=== PATIENT | female | born 1985 | race Caucasian/White ===

== ENCOUNTER → 2020-03-13 13:24 | Outpatient (BNVA) | payer BC, SELFPAY | PROVIDERS: Family Provider Family Medicine; Visit Provider Nurse Practitioner Women's Health | DX: N76.0 Acute vaginitis (principal); Z30.431 Encounter for routine checking of intrauterine contraceptive device | CPT/HCPCS: 88175 ==

== ENCOUNTER 2020-07-26 20:29 | Emergency (ER) | payer BC, SELFPAY ==
[2020-07-26 20:39] VITALS: BP 130/88; PULSE 102; RESP 16; TEMP 36.5; O2SAT 100; BMI 25.7
--- NOTE | 2020-07-26 20:57 | XRR_ITS ---
PROCEDURE INFORMATION: Exam: XR Chest, 1 View Exam date and time: 07/26/2020 9:21 PM Age: 35 years old Clinical indication: Chest pain; Additional info: Palpitations TECHNIQUE: Imaging protocol: XR of the chest Views: 1 view. COMPARISON: No relevant prior studies available. FINDINGS: Lungs: Unremarkable. No consolidation. Pleural space: Unremarkable. No pleural effusion. No pneumothorax. Heart/Mediastinum: Unremarkable. No cardiomegaly. Bones/joints: Unremarkable. XR/XR chest 1V portable [id number] IMPRESSION: No acute findings.
--- NOTE | 2020-07-26 20:58 | W.ED.ARRPALP ---
HPI - Arrhythmia/Palpitations General: Chief Complaint: Arrhythmia/Palpitations Stated Complaint: chest pain/ fluttering / numbness in arm Time Seen by Provider: 07/26/20 20:48 Source: patient Mode of arrival: ambulatory Limitations: no limitations History of Present Illness: HPI narrative: Martha is a nice 35-year-old female who comes in complaining of palpitations. He said they started about 2 hours ago when she was at home just standing. She has any chest pain but she says at times she feels like tingling in her fingers and she gets short of breath. She denies any syncope or near syncope type symptoms. She denies anything similar in the past. The patient took a 0.25 Xanax that she has for anxiety and it has helped some but not completely resolved her symptoms. Denies any fever, chills, nausea or vomiting. She denies any other symptoms. Associated symptoms: Deny diaphoresis, nausea, pre-syncope, syncope or vomiting Review of Systems Const: Denies: fever(s), chills, body aches, fatigue, malaise or diaphoresis Eyes: Denies: change in vision, blurry vision, photophobia, eye discomfort, eye discharge, eye redness or yellow eyes ENMT: Denies: throat pain, odynophagia, hoarseness, swelling of lips/tongue, ear or mastoid pain, ear discharge, change in hearing or nasal discharge Card: Reports: palpitations; Denies: chest pain, irregular heart rhythm, edema, lightheadedness, syncope, pre-syncope, dyspnea on exertion or orthopnea Resp: Denies: dyspnea, productive cough, non-productive cough, wheezing, hemoptysis or chest congestion GI: Denies: abdominal pain, nausea, vomiting, hematemesis, coffee ground emesis, heartburn, diarrhea, constipation, GI cramping, hematochezia or melena : Denies: flank pain, dysuria, urinary frequency, urinary urgency or hematuria Musc: Denies: neck pain, back pain, extremity pain, extremity swelling, joint pain, joint swelling, joint redness, joint warmth or joint stiffness Skin/Breast: Denies: rash, pruritus, erythema, skin pain or skin tenderness Neuro: Denies: headache(s), numbness in extremities, weakness in extremities, sensory changes, lack of coordination, difficulty walking, dizziness, vertigo, confusion, Slurred speech present or seizure-like activity Jamie/Lymph: Denies: easy bruising, easy bleeding, petechiae, purpura or enlarged lymph nodes All/Imm: Denies: urticaria, throat swelling, tongue swelling, facial swelling or acute wheezing PFSH ED PFSH: Medical History Contraceptive management GERD (gastroesophageal reflux disease) Migraine Urge incontinence (~2017) mild symptoms Surgical History H/O breast biopsy 1--12/2006 -benign 2--2009- benign H/O section 1--10/04/2009 2--05/25/2017 H/O laminectomy (~06/2019) C4 C5 with fusion History of cholecystectomy (~03/01/19) History of tonsillectomy (~06/2005) Family History Father Diabetes Family/Other Diabetes Paternal uncle Grandmother Diabetes Paternal grandmother Maternal grandmother Family history of thyroid problem Maternal grandmother Grandfather Diabetes Paternal grandfather Maternal grandfather Hyperlipidemia Maternal grandmother Stroke Maternal grandfather Other Heart disease Hypertension Denies family history of Ovarian cancer Breast cancer Uterine cancer Social History Smoking and tobacco status: never smoked Alcohol intake: current Physical Exam Const: COMMON NORMALS: no acute distress, patient oriented x3, no limitations and alert GENERAL APPEARANCE: cooperative HENMT: COMMON NORMALS: normocephalic, atraumatic, external ears normal, EAC's normal and Normal external nose present HEAD & SCALP: normal to inspection, normocephalic and atraumatic FACE & SINUS: normal facial exam and face symmetric NOSE: Normal external nose present and Normal nares present EXTERNAL EAR: Yes external ears normal EXTERNAL AUDITORY CANAL: EAC's normal MOUTH: Normal oral and palatal mucosa present, lip normal and tongue normal Eye: COMMON NORMALS: Equal, round and reactive pupils present and conjunctivae normal GENERAL EYE: appearance normal, both eyes and all related structures ALIGNMENT: Yes alignment normal PERIORBITAL: periorbital findings normal EYELID: eyelids normal CONJUNCTIVA: Yes conjunctivae normal SCLERA: sclerae normal PUPIL: Yes Equal, round and reactive pupils present Neck/C-Spine: COMMON NORMALS: full ROM, no lymphadenopathy, supple, no meningeal signs and no JVD GENERAL: Yes normal visual inspection and Yes trachea midline Chest: COMMONS NORMALS: normal inspection of the chest and normal palpation of entire chest wall Resp: COMMON NORMALS: normal respiratory effort, No retractions, No use of accessory muscles and clear to auscultation bilaterally EFFORT & INSPECTION: Yes able to speak in complete sentences and Yes symmetric chest movement AUSCULTATION: clear to auscultation bilaterally, no crackles, no rales, no rhonchi and no wheezes Cardio: COMMON NORMALS: no JVD, regular rate, regular rhythm, S1 normal heart sound present and S2 normal heart sound present RATE: regular rate RHYTHM: regular rhythm HEART SOUNDS: S1 normal heart sound present, S2 normal heart sound present, no click, no gallops, no murmurs and no rubs GI: COMMON NORMALS: Soft to palpation and No hepatosplenomegaly present PALPATION: Yes Soft to palpation, No Tenderness to palpation present (GI), No Guarding due to palpation present (GI), No Rigid due to palpation, Yes No hepatosplenomegaly present, No Hernia present, No Palpable mass present and No Pulsatile mass present : COMMON NORMALS: Yes no CVA tenderness BLADDER/KIDNEY EXAM: Yes no CVA tenderness EXTERNAL FEMALE EXAM: No Hernia present Back/Pelvis: COMMON NORMALS: no CVA tenderness, thoracic and lumbar spine normal to inspection, no thoracic nor lumbar tenderness and thoraco-lumbar ROM normal Extremity: COMMON NORMALS: normal to inspection, full ROM, capillary refill normal, no joint enlargement, no clubbing, cyanosis or edema and no calf tenderness Neuro: COMMON NORMALS: patient oriented x3, CN's II-XII intact bilaterally, moves all extremities, no focal motor deficits and no sensory deficits noted SENSORIUM/ORIENTATION: Yes alert MENINGEAL SIGNS: Yes no meningeal signs SPEECH: speech normal Psych: COMMON NORMALS: mental status grossly normal, Normal thought process present, cooperative, normal affect, speech normal and activity/motor behavior normal SPEECH: Yes normal speech THOUGHT PROCESS: Normal thought process present Skin: COMMON NORMALS: no rashes or lesions noted, turgor normal, no jaundice, no petechiae and no mottling GENERAL SKIN EXAM: no rashes or lesions noted and turgor normal Course Vital Signs: Vital signs: Vital Signs Temperature 97.7 F 07/26/20 20:39 Pulse Rate 102 H 07/26/20 20:39 Respiratory Rate 16 07/26/20 20:39 Blood Pressure 130/88 07/26/20 20:39 Pulse Oximetry 100 07/26/20 20:39 MDM - Arrhythmia/Palpitations MDM Narrative: Medical decision making narrative: Martha is a nice 35-year-old female who comes in after having an episode of palpitations while at home. She describes this as a fluttering in her chest but denies any chest pain and only had brief shortness of breath. She feels fine at this time. She believes the Xanax helped her symptoms primarily. It is possible this was just an anxiety attack. Otherwise her EKG is clear at this time. I see no evidence of Xhyqx-Mqiyvzuyp-Mzxks syndrome, obstructed AV pathway, Brugada syndrome, bifascicular block, long or short QT syndrome, no Fclq-Sqkcjd-Ppegxf syndrome, no epsilon waves, or ST segment elevation or depressions. The patient is safe to be discharged but she does agree to return should her symptoms return or anything change or worsen. Lab Data: Labs: Lab Results 07/26/20 07/26/20 07/26/20 Range/Units 21:35 21:35 21:35 WBC 12.0 H (4.0-10.0) 10^3/ uL RBC 3.93 L (4.1-5.3) 10^6/u L Hgb 13.2 (11.5-15.3) g/dL Hct 39.2 (37.0-47.0) % MCV 99.7 H (81-99) fL MCH 33.6 (28.0-34.0) pg MCHC 33.7 (30.0-36.0) g/dL RDW 11.7 L (12.1-15.1) % Plt Count 263 (130-400) 10^3/c mm MPV 10.1 (7.4-10.4) fL Neut % (Auto) 76.4 % Lymph % (Auto) 18.4 % [place] % (Auto) 4.1 % Eos % (Auto) 0.4 % Baso % (Auto) 0.4 % Neut # (Auto) 9.19 H (1.8-7.7) 10^3/u L Lymph # (Auto) 2.2 (0.8-4.8) 10^3/u L [place] # (Auto) 0.5 (0.2-0.9) 10^3/u L Eos # (Auto) 0.1 (0.0-0.8) 10^3/u L Baso # (Auto) 0.1 (0.0-0.1) 10^3/u L Nucleated RBC % (a uto) 0 % Nucleated RBCs # 0.0 /100WBC D-Dimer 0.34 (0-0.59) ug/mIFE U Sodium 137 (136-145) mmol/L Potassium 4.0 (3.5-5.1) mmol/L Chloride 102 (98-107) mmol/L Carbon Dioxide 26 (22-29) mmol/L Anion Gap 13.0 (5-19) BUN 11 (6-20) mg/dL Creatinine 1.0 H (0.5-0.9) mg/dL GFR Calculation 63.9 L (90-130) mL/min Glucose 109 (65-115) mg/dL Calculated Osmolal ity 284 L (285-295) mOsm/k g Calcium 9.1 (8.5-10.5) mg/dL Magnesium 1.8 (1.7-2.3) mg/dL Total Bilirubin 0.3 (0.15-1.2) mg/dL AST 14 (0-32) U/L ALT 9 (0-33) U/L Alkaline Phosphata se 73 (35-105) IU/L Total Protein 7.2 (6.6-8.7) g/dL Albumin 4.5 (3.5-5.2) g/dL Globulin 2.7 (1.3-4.6) g/dL Free T4 1.28 (0.82-1.77) ng/d L HCG, Qual (Negative) 07/26/20 Range/Units 21:35 WBC (4.0-10.0) 10^3/ uL RBC (4.1-5.3) 10^6/u L Hgb (11.5-15.3) g/dL Hct (37.0-47.0) % MCV (81-99) fL MCH (28.0-34.0) pg MCHC (30.0-36.0) g/dL RDW (12.1-15.1) % Plt Count (130-400) 10^3/c mm MPV (7.4-10.4) fL Neut % (Auto) % Lymph % (Auto) % [place] % (Auto) % Eos % (Auto) % Baso % (Auto) % Neut # (Auto) (1.8-7.7) 10^3/u L Lymph # (Auto) (0.8-4.8) 10^3/u L [place] # (Auto) (0.2-0.9) 10^3/u L Eos # (Auto) (0.0-0.8) 10^3/u L Baso # (Auto) (0.0-0.1) 10^3/u L Nucleated RBC % (a uto) % Nucleated RBCs # /100WBC D-Dimer (0-0.59) ug/mIFE U Sodium (136-145) mmol/L Potassium (3.5-5.1) mmol/L Chloride (98-107) mmol/L Carbon Dioxide (22-29) mmol/L Anion Gap (5-19) BUN (6-20) mg/dL Creatinine (0.5-0.9) mg/dL GFR Calculation (90-130) mL/min Glucose (65-115) mg/dL Calculated Osmolal ity (285-295) mOsm/k g Calcium (8.5-10.5) mg/dL Magnesium (1.7-2.3) mg/dL Total Bilirubin (0.15-1.2) mg/dL AST (0-32) U/L ALT (0-33) U/L Alkaline Phosphata se (35-105) IU/L Total Protein (6.6-8.7) g/dL Albumin (3.5-5.2) g/dL Globulin (1.3-4.6) g/dL Free T4 (0.82-1.77) ng/d L HCG, Qual Negative (Negative) Imaging Data^: CXR: Attestation: I personally reviewed and interpreted this imaging study as follows: My impression: No acute cardiopulmonary findings. EKG Data^: EKG 1: Attestation: I personally reviewed and interpreted this EKG as follows: EKG interpretation date: 07/26/20 EKG interpretation time: 20:49 Interpretation: Normal sinus rhythm at 94 beats a minute, no blocks, normal intervals, no acute ST or T wave changes. Other EKG comments: Chest X-Ray 07/26/20 20:57 IMPRESSION: No acute findings. Discharge Plan Discharge Patient Disposition: Home Clinical Impression: Palpitations Condition: Stable Prescriptions: No Action Protonix [address] for susp in packet 40 mg PO DAILY RF: 0 acetaminophen [Tylenol] 325 mg capsule 325 mg PO QID PRNRF: 0 Zyrtec 10 mg capsule 10 mg PO DAILY RF: 0 Mirena 20 mcg/24 hours (5 yrs) 52 mg intrauterine device INTRAUTERI RF: 0 sennosides-docusate sodium 8.6-50 mg tablet 1 tab-cap PO DAILY RF: 0 multivitamin Tablet 1 tab PO DAILY RF: 0 alprazolam [Xanax] 0.25 mg tablet 0.25 mg PO DAILY PRNRF: 0 venlafaxine [Effexor XR] 150 mg capsule,extended release 24hr 150 mg PO DAILY RF: 0 polyethylene glycol 3350 [Miralax] 17 gram/dose powder 17 gm PO DAILY PRNRF: 0 metronidazole 500 mg tablet 500 mg PO BID Qty: 14 RF: 0 Discharge Orders: Discharge Order (Routine); Ordered 07/26/20 Ordered By: Ching Nelson Referrals: Rj Sharma MD [Primary Care Provider] - 1-3 days Discharge Diet: Advance as tolerated Discharge Activity: Resume usual activity Patient Instructions: Palpitations (ED) Activity Restrictions/Additional Instructions: Please return to the ER immediately for any of the signs or symptoms listed on your discharge instruction sheets, worsening/changing of your symptoms, you are not getting better as quickly as expected, or for ANY other cause or concerns. If you develop a recurrence of your palpitations, develop chest pain, you pass out or nearly pass out, or have any other concerns please return to the ER. Also you will need to follow-up with Dr. Sharma for recheck as he may want to order an outpatient Holter monitor. Coding Level of Care Code ED Automatic Washer Mechanic for Chg Fwd Exam Comprehensive
[2020-07-26 21:39] LABS: Basophils # 0.1 10^3/uL (0.0-0.1); Basophils % 0.4 %; Eosinophils # 0.1 10^3/uL (0.0-0.8); Eosinophils % 0.4 %; Hematocrit 39.2 % (37.0-47.0); Hemoglobin 13.2 g/dL (11.5-15.3); Lymphocytes # 2.2 10^3/uL (0.8-4.8); Lymphocytes % 18.4 %; Mean Corpuscular HGB Conc 33.7 g/dL (30.0-36.0); Mean Corpuscular Hemoglobin 33.6 pg (28.0-34.0); Mean Corpuscular Volume 99.7 fL (81-99); Mean Platelet Volume 10.1 fL (7.4-10.4); Monocytes # 0.5 10^3/uL (0.2-0.9); Monocytes % 4.1 %; Neutrophils # 9.19 10^3/uL (1.8-7.7); Neutrophils % 76.4 %; Nucleated Red Blood Cells % 0 %; Platelet Count 263 10^3/cmm (130-400); Red Blood Count 3.93 10^6/uL (4.1-5.3); Red Cell Distribution Width 11.7 % (12.1-15.1)
[2020-07-26 21:55] LABS: D Dimer 0.34 ug/mIFEU (0-0.59); HCG, Serum Qual Negative (Negative)
[2020-07-26 22:14] LABS: Alanine Aminotransferase 9 U/L (0-33); Albumin Level 4.5 g/dL (3.5-5.2); Alkaline Phosphatase 73 IU/L (35-105); Aspartate Amino Transferase 14 U/L (0-32); Blood Urea Nitrogen 11 mg/dL (6-20); Calcium 9.1 mg/dL (8.5-10.5); Carbon Dioxide 26 mmol/L (22-29); Chloride 102 mmol/L (98-107); Free T4 Free Thyroxine 1.28 ng/dL (0.82-1.77); Globulin 2.7 g/dL (1.3-4.6); Glomerular Filtration Rate 63.9 mL/min (90-130); Glucose 109 mg/dL (65-115); Magnesium 1.8 mg/dL (1.7-2.3); Osmolality Calculated 284 mOsm/kg (285-295); Sodium 137 mmol/L (136-145); Total Bilirubin 0.3 mg/dL (0.15-1.2); Total Protein 7.2 g/dL (6.6-8.7)
[2020-07-26 22:32] LABS: Add Urine Microscopic? NO
[2020-07-26 22:42] LABS: Amphetamines Screen Urine Negative (Negative); Barbiturates Screen Urine Negative (Negative); Benzodiazepines Screen Urine Negative (Negative); Cocaine Screen Urine Negative (Negative); Opiate Screen Urine Negative (Negative); PCP Screen Urine Negative (Negative); THC Screen Urine Negative (Negative); Urine Color Yellow (Yellow)
[2020-07-26 22:43] LABS: Bilirubin Urine Neg (Negative); Blood Urine Neg (Negative); Glucose Urine UA Norm (Normal); Ketones Urine Negative (Negative); Leukocyte Esterase Urine Negative (Negative); Nitrate Urine Negative (Negative); Protein Urine Neg (Negative); Specific Gravity, Urine 1.015 (1.005-1.030); Sulfosalicylic Acid Urine Negative (Negative); Urine Appearance Clear (CLEAR); Urobilinogen Urine Norm (Negative); pH Urine 8 (5-7)
[2020-07-26 22:44] VITALS: BP 118/78; PULSE 78; RESP 17; O2SAT 99
== END 2020-07-26 22:55 | disposition home or self-care (01) ==
PROVIDERS: Emergency Provider Emergency Medicine; PCP Family Medicine
DX: R00.2 Palpitations (principal)
CPT/HCPCS: 12345; 71045; 80053; 80306; 81003; 83735; 84439; 84703; 85025; 85378; 99283

== ENCOUNTER 2020-09-18 10:36 | Outpatient (CLI) | payer BC, SELFPAY ==
--- NOTE | 2020-09-18 10:49 | XR_ITS ---
WS: [id number] Left hand, 2 views, 09/18/2020 Clinical Data: R79.82 - Elevated C-reactive protein (CRP) Comparison: None. Findings: No fractures or dislocations are seen. The soft tissues are unremarkable. The joint spaces are normal No periarticular demineralization or calcifications are seen. XR/XR hand LT 2V 27208 Impression: Negative left hand.
--- NOTE | 2020-09-18 10:49 | XR_ITS ---
WS: [id number] Left knee, AP and lateral, 09/18/2020 Clinical Data: R79.82 - Elevated C-reactive protein (CRP) Comparison: None. Findings: No fractures or dislocations are seen. The joint spaces are normal. The patella is intact. The soft t issues are unremarkable. XR/XR knee LT 1-2V 45869 Impression: Negative left knee.
--- NOTE | 2020-09-18 10:49 | XR_ITS ---
WS: [id number] Right knee, AP and lateral, 09/18/2020 Clinical Data: R79.82 - Elevated C-reactive protein (CRP) Comparison: None. Findings: No fractures or dislocations are seen. The joint spaces are normal. The patella is intact. The soft t issues are unremarkable. XR/XR knee RT 1-2V 76918 Impression: Negative right knee.
--- NOTE | 2020-09-18 10:49 | XR_ITS ---
WS: [id number] Right hand, 2 views, 09/18/2020 Clinical Data: R79.82 - Elevated C-reactive protein (CRP) Comparison: Right hand, 08/22/2011. Findings: No fractures or dislocations are seen. The soft tissues are unremarkable. The joint space s are normal No periarticular demineralization or calcifications are seen. XR/XR hand RT 2V 93000 Impression: Negative right hand.
== END 2020-09-18 10:37 | disposition home or self-care (01) ==
LOC: RAD 10:48
PROVIDERS: PCP Nurse Practitioner Family; Visit Provider Internal Medicine
DX: M25.50 Pain in unspecified joint (principal); R79.82 Elevated C-reactive protein (CRP); D86.9 Sarcoidosis, unspecified; Z79.899 Other long term (current) drug therapy
CPT/HCPCS: 36415; 73120; 73560; 80053; 82306; 82784; 83516; 85651; 86140; 86812; 99204

== ENCOUNTER → 2020-09-30 10:46 | Outpatient (BNVA) | payer BC, SELFPAY | PROVIDERS: PCP Nurse Practitioner Family; Visit Provider Internal Medicine | DX: M25.50 Pain in unspecified joint (principal); R79.82 Elevated C-reactive protein (CRP); D86.9 Sarcoidosis, unspecified | CPT/HCPCS: 99214 ==

== ENCOUNTER 2020-09-30 14:27 | Outpatient (CLI) | payer BC, SELFPAY ==
--- NOTE | 2020-09-30 14:46 | XR_ITS ---
WS: [id number] Abdomen series: PA CHEST AND 2 VIEWS OF THE ABDOMEN HISTORY: CONSTIPATION/ABD PAIN COMPARISON: 12/15/2007 Lungs are clear and well aerated. Heart size is normal. No free air beneath the diaphragm. Moderate constipation throughout the colon. No obstructive pattern or free air. Prior cholecystectomy. IUD. XR/XR acute abdomen series 49835 IMPRESSION: 1. Moderate diffuse constipation. 2. Prior cholecystectomy.
== END 2020-09-30 14:28 | disposition home or self-care (01) ==
PROVIDERS: PCP Nurse Practitioner Family; Visit Provider Nurse Practitioner Family
DX: R10.9 Unspecified abdominal pain (principal); K59.00 Constipation, unspecified
CPT/HCPCS: 74022

== ENCOUNTER 2020-11-29 08:10 | Outpatient (CLI) | payer BC, SELFPAY ==
--- NOTE | 2020-11-29 08:23 | FL_ITS ---
WS: [id number] UPPER GI WITH AIR TECHNICAL: Double contrast upper GI with small bowel follow-through. FLUOROSCOPY TIME: 4.7 minutes CLINICAL INFORMATION: ABDOMINAL PAIN, ANXIETY, CONSTIPATION COMPARISON: None. FINDINGS: Swallowing: No evidence of aspiration or penetration. Esophagus: Mild dysmotility. No stricture. Gastroesophageal reflux: Mild reflux in the upright and supine positions Stomach: Tiny hiatal hernia. Stomach otherwise normal. Duodenum: Normal. Other findings: None. SMALL BOWEL EXAMINATION Contrast material: 50/50 thin barium sulfate suspension. Transit time: 80 Minutes (normal = 30 - 240 minutes) Normal small bowel transit time. Normal jejunum and proximal small bowel. Normal pelvic small bowel l oops. Normal ileocecal valve. No evidence of high-grade stricture or obstructing mass. Tortuous and h igh riding sigmoid displaces small bowel loops into the midabdomen. . FL/FL upperGI air smallbowel ser* IMPRESSION: 1. Mild esophageal dysmotility with mild reflux into the mid and distal esopha lico 2. Tiny esophageal hiatal hernia. 3. Normal small bowel transit time. 4. Normal small bowel examination. No evidence of high-grade stricture or obst ructing mass. 5. Tortuous and high riding sigmoid colon displaces small bowel loops into the midabdomen.
== END 2020-11-29 08:11 | disposition home or self-care (01) ==
PROVIDERS: PCP Family Medicine; Visit Provider Family Medicine
DX: R10.9 Unspecified abdominal pain (principal); F41.9 Anxiety disorder, unspecified; K59.00 Constipation, unspecified; K44.9 Diaphragmatic hernia without obstruction or gangrene; K21.9 Gastro-esophageal reflux disease without esophagitis
CPT/HCPCS: 74246; 74248

== ENCOUNTER 2020-12-09 10:45 | Outpatient (CLI) | payer BC, SELFPAY ==
--- NOTE | 2020-12-09 10:57 | US_ITS ---
WS: [id number] Complete ABDOMINAL ULTRASOUND HISTORY: ABDOMINAL PAIN/CONSTIPATION COMPARISON: 02/19/2015 Liver: 13.4 cm in length. Liver is normal size and echogenicity with no mass or intrahepatic dilatati on. Gallbladder: Prior cholecystectomy. Pancreas: Normal size and echogenicity. CBD: 0.4 cm. Right kidney: 9.3 cm x 4.9 cm x 3.9 cm. No mass, cortical thickening or hydronephrosis. Left kidney: 9.9 cm x 5.1 cm x 3.7 cm. No mass, cortical thickening or hydronephrosis. Spleen: Normal size and echogenicity. Abdominal aorta and IVC are within normal limits. No ascites. US/US abdomen complete* [id number] IMPRESSION: 1. Prior cholecystectomy. 2. Otherwise negative. Previously described hemangioma is not typically seen t macey.
== END 2020-12-09 10:46 | disposition home or self-care (01) ==
LOC: US 10:51
PROVIDERS: PCP Family Medicine; Visit Provider Family Medicine
DX: R10.9 Unspecified abdominal pain (principal); F41.9 Anxiety disorder, unspecified; K59.00 Constipation, unspecified; Z90.49 Acquired absence of other specified parts of digestive tract
CPT/HCPCS: 76700

== ENCOUNTER 2021-07-21 13:27 | Outpatient (CLI) | payer BC, SELFPAY ==
--- NOTE | 2021-07-21 13:32 | MR_ITS ---
WS: [id number] MRI CERVICAL SPINE NONCONTRAST HISTORY: CERVICAL DISC DISORDER COMPARISON: 05/19/2019 Technique: Multiplanar, multisequence noncontrast imaging of the cervical spine. Since the prior examination anterior cervical fusion has been placed at C5-6. Small hemangioma in C7 is unchanged. No fractures. Signal within the cervical cord is normal. Visualized posterior fossa is unremarkable. Craniocervical junction, C1 and C2 relationship, odontoid process and soft tissues are normal. C2-C3: Normal. C3-C4: Normal. C4-C5: New central small disc protrusion and mild osteophytic ridging around the vertebral body. Ther e is near contact on the ventral cord but no high-grade stenosis. C5-C6: No focal disc protrusion or significant stenosis. C6-C7: Tiny central disc protrusion and small bilateral foraminal osteophytes. Very mild central cindy l narrowing. C7-T1: Normal. Paraspinal soft tissue are normal. MR/MR cervical spin wo con* [id number] IMPRESSION: 1. Status post anterior cervical fusion at C5-6 with resolution of the central disc protrusion and stenosis at this level since 05/19/2019. 2. New small central disc protrusions at C4-5 and C6-7 with mild encroachment upon the ventral cord and stenosis. No high-grade stenosis. Disc protrusion at C4-5 is slightly larger.
== END 2021-07-21 13:28 | disposition home or self-care (01) ==
LOC: RADSHAW 13:31
PROVIDERS: PCP Family Medicine; Visit Provider Family Medicine
DX: M50.90 Cervical disc disorder, unspecified, unspecified cervical region (principal); M50.221 Other cervical disc displacement at C4-C5 level; M43.22 Fusion of spine, cervical region
CPT/HCPCS: 72141

== ENCOUNTER → 2021-08-05 09:33 | Outpatient (BNVA) | payer BC, SELFPAY | PROVIDERS: PCP Family Medicine; Referring Provider Family Medicine; Visit Provider Anesthesiology Pain Medicine | DX: G89.29 Other chronic pain (principal); M50.90 Cervical disc disorder, unspecified, unspecified cervical region; M25.512 Pain in left shoulder; Z79.891 Long term (current) use of opiate analgesic | CPT/HCPCS: 99204 ==

== ENCOUNTER 2021-08-13 06:00 | Outpatient (RCR) | payer BC, SELFPAY | END 2021-09-07 23:59 | disposition home or self-care (01) | LOC: SPT 06:00 | PROVIDERS: PCP Family Medicine; Referring Provider Family Medicine; Visit Provider Family Medicine | DX: M50.90 Cervical disc disorder, unspecified, unspecified cervical region (principal) | CPT/HCPCS: 20560; 97110; 97140; 97161 ==

== ENCOUNTER → 2021-08-29 09:13 | Outpatient (BNVA) | payer BC, SELFPAY | PROVIDERS: PCP Family Medicine; Visit Provider Surgery | DX: K59.00 Constipation, unspecified (principal) | CPT/HCPCS: 87635 ==

== ENCOUNTER 2021-09-04 09:37 | Day surgery (SDC) | payer BC, SELFPAY ==
[2021-09-02 15:27] VITALS: BMI 26.1
--- NOTE | 2021-09-04 10:09 | ANES.PREANE2 ---
Pre-Anesthetic Assessment Pre-Anesthetic Assessment: Height/Weight: Height 1.63 m Weight 68.946 kg Preop Diagnosis: panendoscopy Proposed Procedure: Operation Date: 09/04/21 11:30 Proposed Procedures p EGD/Colon 70636 K21.9(Not Applicable) - Escobar Back MD s Colonoscopy 99169 K59.00(Not Applicable) - Escobar Back MD Was Beta Ladan taken within 24 hours: N/A Was Clonidine taken within 24 hours: N/A Exam: Pre-Anes Outpt Exam: alert, oriented x 3, clear to auscultation bilaterally and regular rate & rhythm Airway: Submandibular: WNL Cervical ROM: Other (s/p cervical neck fusion. Mild extension limitation.) MP: 2 History/ROS: No significant history except as noted and No significant complaints Neuropsych: Neuropsych: Anxiety and Depression Anesthetic Plan: ASA status: 2 Anesthesia: Anesthesia Evaluation and MAC Risk of > 500 ml blood loss (7ml/kg in children): No PFSH Anesthesia PFSH: Medical History (Updated 08/26/21 @ 08:58 by Escobar Back MD) Chronic constipation GERD (gastroesophageal reflux disease) Migraine Urge incontinence (~2017) mild symptoms Surgical History H/O breast biopsy 1--12/2006 -benign 2--2009- benign H/O section 1--10/04/2009 2--05/25/2017 H/O laminectomy (~06/2019) C4 C5 with fusion History of cholecystectomy (~03/01/19) History of tonsillectomy (~06/2005) Family History Father Diabetes Family/Other Diabetes Paternal uncle Grandmother Diabetes Paternal grandmother Maternal grandmother Family history of thyroid problem Maternal grandmother Grandfather Diabetes Paternal grandfather Maternal grandfather Hyperlipidemia Maternal grandmother Stroke Maternal grandfather Other Heart disease Hypertension Denies family history of Ovarian cancer Breast cancer Uterine cancer Social History Alcohol intake: current Lives independently: Yes History of recent travel: No Data Anesthesia Cardiac Studies: Holter Monitor 08/12/20
[2021-09-04] MEDS: sodium chloride 0.9% 1,000 ML 30 ML IV (10:18)
[2021-09-04 10:30] VITALS: BP 143/89; PULSE 76; RESP 18; TEMP 36.8; O2SAT 100
[2021-09-04 11:26] LABS: OR HCG Qualitative Urine Negative (Negative)
--- NOTE | 2021-09-04 11:37 | W.PM.OPSFHP ---
Same Day Surgery H&P Indication for Procedure/HPI DATE OF PROCEDURE: September 04, 2021 CHIEF COMPLAINT/INDICATIONFOR SURGICAL PROCEDURE: egd/colon PREOP DIAGNOSIS: panendoscopy PLANNED PROCEDRUE: Operation Date: 09/04/21 11:30 Proposed Procedures p EGD/Colon 90613 K21.9(Not Applicable) - Escobar Back MD s Colonoscopy 89451 K59.00(Not Applicable) - Escobar Back MD Medications/Allergies* Home Medications Medication Instructions Recorded Confirmed Type acetaminophen 325 mg capsule 325 mg PO QID PRN 03/13/20 09/04/21 History alprazolam 0.25 mg tablet 0.25 mg PO DAILY PRN 03/13/20 09/02/21 History cetirizine 10 mg capsule 10 mg PO DAILY 03/13/20 09/02/21 History levonorgestrel 20 mcg/24 hours (6 1 insert INTRAUTERI DIRECTED 03/13/20 09/04/21 History yrs) 52 mg intrauterine device multivitamin 1 tab PO DAILY 03/13/20 09/02/21 History pantoprazole 40 mg granules 40 mg PO DAILY 03/13/20 09/02/21 History delayed-release for susp in packet polyethylene glycol 3350 17 17 gm PO DAILY PRN 03/13/20 09/02/21 History gram/dose oral powder Lactobacillus acidophilus 1.5 mg 500 mmu cells PO DAILY cap 09/18/20 09/02/21 History (250 million cell) capsule buspirone 10 mg tablet 10 mg PO BID 02/18/21 09/02/21 History duloxetine 60 mg capsule,delayed 30 mg PO DAILY cap 03/14/21 09/02/21 History release cyclobenzaprine 10 mg tablet 10 mg PO TID 08/05/21 09/02/21 History hydrocodone 5 mg-acetaminophen 325 1 tab PO BID PRN 08/05/21 09/04/21 History mg tablet Allergies/Adverse Reactions Allergy/AdvReac Type Severity Reaction Status Date / Time No Known Allergies Allergy Verified 09/04/21 10:17 Current Medications: Generic Name Dose Route Start Last Admin Trade Name Freq PRN Reason Stop Dose Admin Sodium Chloride 1,000 mls @ 30 mls/hr 09/04/21 10:00 09/04/21 10:18 Sodium Chloride 0.9% IV 09/05/21 09:59 30 mls/hr .Q24H ZACHARY Administration Pertinent History/Comorbid Conditions* Medical History (Updated 08/26/21 @ 08:58 by Escobar Back MD) Chronic constipation GERD (gastroesophageal reflux disease) Migraine Urge incontinence (~2017) mild symptoms Surgical History (Updated 03/13/20 @ 10:11 by Bella Harper APN, SIMEON) H/O breast biopsy 1--12/2006 -benign 2--2009- benign H/O section 1--10/04/2009 2--05/25/2017 H/O laminectomy (~06/2019) C4 C5 with fusion History of cholecystectomy (~03/01/19) History of tonsillectomy (~06/2005) Family History (Updated 03/13/20 @ 09:25 by Aarti Dye LPN) Diabetes Father Family/Other Paternal uncle Grandmother Paternal grandmother Maternal grandmother Grandfather Paternal grandfather Maternal grandfather Heart disease Hyperlipidemia Grandfather Maternal grandmother Family history of thyroid problem Grandmother Maternal grandmother Hypertension Stroke Grandfather Maternal grandfather Denies family history of Ovarian cancer Breast cancer Uterine cancer Social History Alcohol intake: current Lives independently: Yes History of recent travel: No Pertinent Exam Findings alert, oriented x 3 and regular rate & rhythm Recommendations Surgery/Procedure today Coding Level of Care Code Acute Process Improvement Engineer for Fredi French
[2021-09-04 12:11] VITALS: BP 90/64; PULSE 82; RESP 16; TEMP 36.3; O2SAT 100
[2021-09-04 12:20] VITALS: BP 106/68; PULSE 76; RESP 14; TEMP 36.6; O2SAT 100
--- NOTE | 2021-09-04 12:57 | ANE.PACU2 ---
Inpatient post-anesthesia follow up: Airway intact: Yes Vital signs: Temperature 97.9 F Pulse Rate 76 Respiratory Rate 14 Blood Pressure 106/68 Pulse Oximetry 100 Oxygen Delivery Me thod Room Air Oxygen Flow Rate Fraction of Inspir ed Oxygen Hydration adequate: Yes Nausea and vomiting: No Pain level: 1 Mental status: Baseline
== END 2021-09-04 12:45 | disposition home or self-care (01) ==
PROVIDERS: Anesthesiology; PCP Family Medicine; Visit Provider Surgery
PROC: 0DJ08ZZ Inspection of Upper Intestinal Tract, Via Natural or Artificial Opening Endoscopic (ICD-10-PCS; CPT 43235; principal; 2021-09-04 11:30)
PROC: 0DJD8ZZ Inspection of Lower Intestinal Tract, Via Natural or Artificial Opening Endoscopic (ICD-10-PCS; CPT 45378; 2021-09-04 11:30)
DX: R10.12 Left upper quadrant pain (principal); K59.09 Other constipation; K21.9 Gastro-esophageal reflux disease without esophagitis; K29.60 Other gastritis without bleeding
CPT/HCPCS: 43239; 45378; 84703; 88305; 96360; 96361; J2704; J7030

== ENCOUNTER 2021-09-08 06:00 | Outpatient (RCR) | payer BC, SELFPAY | END 2021-10-07 23:59 | disposition home or self-care (01) | LOC: SPT 06:00 | PROVIDERS: PCP Family Medicine; Referring Provider Family Medicine; Visit Provider Family Medicine | DX: M50.90 Cervical disc disorder, unspecified, unspecified cervical region (principal); M54.2 Cervicalgia | CPT/HCPCS: 20560; 97110; 97140 ==

== ENCOUNTER 2021-10-08 06:00 | Outpatient (RCR) | payer BC, SELFPAY | END 2021-10-30 23:59 | disposition home or self-care (01) | LOC: SPT 06:00 | PROVIDERS: PCP Family Medicine; Referring Provider Family Medicine; Visit Provider Family Medicine | DX: M50.90 Cervical disc disorder, unspecified, unspecified cervical region (principal) | CPT/HCPCS: 20560; 97110; 97140 ==

== ENCOUNTER 2022-04-08 06:00 | Outpatient (RCR) | payer BC, SELFPAY | END 2022-05-07 23:59 | disposition home or self-care (01) | LOC: SPT 06:00 | PROVIDERS: PCP Family Medicine; Referring Provider Family Medicine; Visit Provider Family Medicine | DX: M50.90 Cervical disc disorder, unspecified, unspecified cervical region (principal); M54.2 Cervicalgia | CPT/HCPCS: 20560; 97110; 97161 ==

== ENCOUNTER 2022-05-08 06:00 | Outpatient (RCR) | payer BC, SELFPAY | END 2022-06-07 23:59 | disposition home or self-care (01) | LOC: SPT 06:00 | PROVIDERS: PCP Family Medicine; Referring Provider Family Medicine; Visit Provider Family Medicine | DX: M54.2 Cervicalgia (principal) | CPT/HCPCS: 20560; 97110 ==

== ENCOUNTER → 2022-05-15 12:43 | Outpatient (BNVA) | payer BC, SELFPAY | PROVIDERS: PCP Family Medicine; Visit Provider Clinical Nurse Specialist Adult Health | DX: R53.83 Other fatigue (principal) | CPT/HCPCS: 80053; 85025 ==

== ENCOUNTER 2022-05-16 07:46 | Emergency (ER) | payer BC, SELFPAY ==
[2022-05-16 08:05] VITALS: BP 112/83; PULSE 99; RESP 14; TEMP 36.9; O2SAT 100; BMI 26.6
--- NOTE | 2022-05-16 08:45 | ED_ITS ---
HPI - General Adult General: Chief complaint: General Medical Stated complaint: neck pain Time Seen by Provider: 05/16/22 07:51 Source: patient Mode of arrival: ambulatory Limitations: no limitations History of Present Illness: 37-year-old female presents to the emergency room with complaint of neck pain. She is has chronic neck pain she has had surgery in the past with his C5-6 fusion. Lately its been flaring up again and she has had more discomfort she had difficult time sleeping she used some hydrocodone from previous prescription with moderate relief of symptoms at best is rather short-lived. She is otherwise tried some [id number] Tylenol and ibuprofen. She tells me she has seen her primary care doctor looking at going back to see the surgeon who did her previous procedure. She did have a injection at the pain clinic once but did not provide significant relief. Onset (ago): hour(s) Location: neck Radiation: non-radiation Severity: moderate Quality: aching Pain Consistency: constant Relieving factors: none Exacerbating factors: none Associated symptoms: Deny chest pain, confusion, cough, diaphoresis, decreased appetite, dyspnea, fevers/chills, headache(s), malaise, nausea, rash, palpitations, seizures, short of breath, syncope, vomiting or weakness Treatments prior to arrival: none Review of Systems Const: Denies: fever(s), chills, fatigue, malaise or diaphoresis ENMT: Denies: throat pain, ear or mastoid pain, nasal discharge or nasal congestion Card: Denies: chest pain, palpitations or syncope Resp: Denies: dyspnea GI: Denies: nausea or vomiting : Denies: flank pain, difficulty voiding, dysuria, urinary frequency or urinary urgency Skin/Breast: Denies: rash Neuro: Denies: headache(s) or confusion PFS ED PFSH: Medical History Anxiety and depression Chronic constipation GERD (gastroesophageal reflux disease) Migraine with aura No pertinent past medical history neghx: htn,dm,thyroid,dvt/pe PCP: Dr. Sharma Psychiatric care Urge incontinence (~2018) mild symptoms Surgical History H/O breast biopsy 1--12/2006 -benign 2--2009- benign H/O section 1--10/04/2009 2--05/25/2017 H/O esophagogastroduodenoscopy (09/04/21) H/O laminectomy (~06/2019) C4 C5 with fusion History of cholecystectomy (~03/01/19) History of tonsillectomy Status post colonoscopy (09/04/21) Family History Father Diabetes Hypertension Family/Other Diabetes Paternal uncle Grandmother Diabetes Paternal grandmother Maternal grandmother Family history of thyroid problem Maternal grandmother Heart disease Maternal and paternal Hypertension Maternal and paternal Grandfather Diabetes Paternal grandfather Maternal grandfather Hyperlipidemia Maternal grandmother Stroke Maternal grandfather Heart disease Paternal Hypertension Paternal Denies family history of Ovarian cancer Breast cancer Uterine cancer Social History Alcohol intake: current Lives independently: Yes History of recent travel: No Physical Exam Const: COMMON NORMALS: no acute distress GENERAL APPEARANCE: cooperative and comfortable ORIENTATION/CONSCIOUSNESS: Yes awake, Yes oriented to person, Yes oriented to place and Yes oriented to time HENMT: COMMON NORMALS: normocephalic, atraumatic and hearing grossly normal bilaterally HEAD & SCALP: normocephalic and atraumatic Neck/C-Spine: COMMON NORMALS: no JVD OTHER: Loss of cervical lordosis on physical exam patient holding splinted position. Resp: COMMON NORMALS: normal respiratory effort, No retractions, No use of accessory muscles and clear to auscultation bilaterally AUSCULTATION: clear to auscultation bilaterally Cardio: COMMON NORMALS: no JVD, regular rate, regular rhythm and No murmurs present (Cardio) RATE: regular rate RHYTHM: regular rhythm Extremity: COMMON NORMALS: normal to inspection, capillary refill normal, no clubbing, cyanosis or edema, no calf tenderness and no pedal edema Neuro: SENSORIUM/ORIENTATION: Yes oriented to person, Yes oriented to place and Yes oriented to time SENSORY EXAM: Yes extremities (Upper extremities normal) MOTOR EXAM: 5/5 motor strength present throughout DEEP TENDON REFLEXES: Right triceps reflex intensity grade: 2+, Left triceps reflex intensity grade: 2+, Rt Biceps (C5, C6): 2+, Left biceps reflex intensity grade: 2+, Right brachioradialis reflex intensity grade: 2+ and Left brachioradialis reflex intensity grade: 2+ Skin: COMMON NORMALS: no rashes or lesions noted GENERAL SKIN EXAM: no rashes or lesions noted Course Vital Signs: Vital signs: Vital Signs Temperature 98.4 F 05/16/22 08:05 Pulse Rate 99 05/16/22 08:05 Respiratory Rate 14 05/16/22 08:05 Blood Pressure 112/83 05/16/22 08:05 Pulse Oximetry 100 05/16/22 08:05 [facility] - General Adult Medical Decision Making Patient given IM dexamethasone ketorolac and Norflex here discharged home with diclofenac steroid taper and tizanidine. Can continue to use the previously prescribed hydrocodone as needed follow-up with primary care doctor. Medical Records I reviewed the patient's medical records. Lab Data I reviewed the patient's lab results. Discharge Plan Discharge Patient Disposition: Home Clinical Impression: Chronic neck pain Condition: Stable Prescriptions: New prednisone 20 mg tablet 20 mg PO TID Qty: 15 0RF Rx Instructions: 1 p.o. 3 times daily x3 days, 1 p.o. twice daily x2 days, 1 p.o. daily x2 days diclofenac sodium 75 mg tablet,delayed release (DR/EC) 75 mg PO Q12H PRN (Reason: pain) Qty: 20 0RF tizanidine 4 mg capsule 4 mg PO Q8H PRN (Reason: muscle spasticity) Qty: 20 0RF No Action acetaminophen [Tylenol] 325 mg capsule 325 mg PO QID PRN (Reason: Pain) 0RF Zyrtec 10 mg capsule 10 mg PO DAILY 0RF Mirena 20 mcg/24 hours (5 yrs) 52 mg intrauterine device 1 insert INTRAUTERI DIRECTED 0RF alprazolam [Xanax] 0.25 mg tablet 0.25 mg PO DAILY PRN (Reason: Anxiety) 0RF polyethylene glycol 3350 [Miralax] 17 gram/dose powder 17 gm PO DAILY PRN (Reason: Abdominal Discomfort) 0RF buspirone 10 mg tablet 10 mg PO DAILY 0RF cyclobenzaprine 10 mg tablet 10 mg PO TID PRN0RF duloxetine 60 mg capsule,delayed release(DR/EC) 30 mg PO BID 0RF Protonix 40 mg tablet,delayed release (DR/EC) 40 mg PO DAILY 0RF Linzess 145 mcg capsule See Rx Instructions .ROUTE .COMPLEX Qty: 30 11RF Dose Instruction: Take 1 capsule by mouth once daily Rx Instructions: Take 1 capsule by mouth once daily Discharge Orders: Discharge ED (Routine); Ordered 05/16/22 Ordered By: Clay Garcia Referrals: Rj Sharma MD [Primary Care Provider] - Discharge Diet: Usual diet Discharge Activity: Limit activity as instructed Patient Instructions: Opioid Safety Activity Restrictions/Additional Instructions: Avoid strenuous activity do not work above shoulder level do not lift anything greater than 10 pounds. You may use ice or heat on the neck as needed if provides relief. Start prednisone taper this evening. Do not take ibuprofen or Aleve with the diclofenac. Follow-up with your primary care doctor to discuss further evaluation including advanced imaging Coding Level of Care Code ED [employer] for [employer]
[2022-05-16] MEDS: dexamethasone 10 mg/mL INJ IM (08:53)
[2022-05-16] MEDS: ketorolac 30 mg/mL INJ 60 MG IM (08:58)
[2022-05-16] MEDS: orphenadrine 30 mg/mL Inj 2 mL 60 MG IM (08:58)
== END 2022-05-16 09:00 | disposition home or self-care (01) ==
PROVIDERS: Emergency Provider Family Medicine; PCP Family Medicine
DX: M54.2 Cervicalgia (principal); G89.29 Other chronic pain; Z98.1 Arthrodesis status
CPT/HCPCS: 96372; 99284; J1100; J1885; J2360

== ENCOUNTER → 2022-06-04 08:26 | Outpatient (BNVA) | payer BC, SELFPAY | PROVIDERS: PCP Family Medicine; Visit Provider Clinical Nurse Specialist Adult Health | DX: M54.2 Cervicalgia (principal); G89.29 Other chronic pain | CPT/HCPCS: 82306 ==

== ENCOUNTER 2022-06-08 06:00 | Outpatient (RCR) | payer BC, SELFPAY | END 2022-07-08 23:59 | disposition home or self-care (01) | LOC: SPT 06:00 | PROVIDERS: PCP Family Medicine; Visit Provider Family Medicine | DX: M54.12 Radiculopathy, cervical region (principal) | CPT/HCPCS: 20560; 97110; 97530 ==

== ENCOUNTER 2022-07-07 15:12 | Outpatient (CLI) | payer BC, SELFPAY ==
--- NOTE | 2022-07-07 15:30 | XR_ITS ---
WS: [id number] SCREENING DEXA SCAN [place] CLINICAL INFORMATION: chronic steroids COMPARISON: None. FINDINGS: The L1-L4 bone mineral density measures 1.328 g/cm2. This corresponds to a T score score of 1.2 and Z score of 1.0. Left femoral neck bone mineral density measures 1.022 g/cm2. This corresponds to a T score of 0.1 and Z score of 0.1. Right femoral neck bone mineral density measures 1.018 g/cm2. This corresponds to a T score 0.1of and Z score of 0.0. Mean femoral neck bone mineral density measures 1.020 g/cm2. This corresponds to a T score of 0.1 and Z score of 0.1. XR/XR DEXA axial skeleton* [id number] IMPRESSION: Normal bone mineralization. Patient's FRAX score not calculated due to age.
== END 2022-07-07 15:13 | disposition home or self-care (01) ==
PROVIDERS: PCP Family Medicine; Visit Provider Clinical Nurse Specialist Adult Health
DX: R50.2 Drug induced fever (principal); T38.0X5A Adverse effect of glucocorticoids and synthetic analogues, initial encounter; Z79.52 Long term (current) use of systemic steroids
CPT/HCPCS: 77080

== ENCOUNTER 2022-07-09 06:00 | Outpatient (RCR) | payer BC, SELFPAY | END 2022-08-07 23:59 | disposition home or self-care (01) | LOC: SPT 06:00 | PROVIDERS: PCP Family Medicine; Visit Provider Family Medicine | DX: M54.2 Cervicalgia (principal) | CPT/HCPCS: 20560; 97110; 97530 ==

== ENCOUNTER 2022-08-08 06:00 | Outpatient (RCR) | payer BC, SELFPAY | END 2022-09-07 23:59 | disposition home or self-care (01) | LOC: SPT 06:00 | PROVIDERS: PCP Family Medicine; Visit Provider Family Medicine | DX: M54.2 Cervicalgia (principal) | CPT/HCPCS: 20560; 97110 ==

== ENCOUNTER 2022-09-08 06:00 | Outpatient (RCR) | payer BC, SELFPAY | END 2022-09-29 15:30 | disposition home or self-care (01) | LOC: SPT 06:00 | PROVIDERS: PCP Family Medicine; Visit Provider Family Medicine | DX: M54.2 Cervicalgia (principal) | CPT/HCPCS: 20560; 97110 ==

== ENCOUNTER 2023-02-23 10:48 | Outpatient (CLI) | payer BC, SELFPAY ==
--- NOTE | 2023-02-23 11:10 | XR_ITS ---
WS: [id number] Cervical spine, 3 views, 02/23/2023 Clinical Data: CERVICAL RADICULOPATHY/NECK PAIN Comparison: Cervical spine, 07/24/2019. Findings: The anterior cervical disc fusion at C5-C6 with an artificial disc remain stable. There is an additional anterior cervical disc fusion at C4-C5 with an artificial disc. No prevertebral soft ti ssue swelling is seen. The odontoid is normal. There are no compression fractures. The soft tissues o f the neck and the lung apices are unremarkable. XR/XR cervical spine 3V* [id number] Impression: Stable anterior cervical disc fusion at C5-C6 and C4-C5.
== END 2023-02-23 10:49 | disposition home or self-care (01) ==
PROVIDERS: PCP Family Medicine; Visit Provider Nurse Practitioner Family
DX: M54.12 Radiculopathy, cervical region (principal); Z98.1 Arthrodesis status
CPT/HCPCS: 72040

== ENCOUNTER 2023-03-29 14:26 | Outpatient (CLI) | payer BC, SELFPAY ==
--- NOTE | 2023-03-29 14:53 | XRR_ITS ---
PROCEDURE INFORMATION: Exam: XR Left Wrist Exam date and time: 03/29/2023 3:18 PM Age: 38 years old Clinical indication: Pain; Wrist; Left; Additional info: Left wrist pain, dorsiflexion hurts dorsal aspect of wrist. Extension, lunate bone May be TECHNIQUE: Imaging protocol: Radiologic exam of the left wrist. Views: 3 or more views. COMPARISON: CR XR hand LT 2V [id number] 09/18/2020 11:15 AM FINDINGS: Bones/joints: Osseous structures are intact. Negative for fracture. Joint spaces are preserved. Soft tissues: Normal. XR/XR wrist LT min 3V* [id number] IMPRESSION: No acute findings.
== END 2023-03-29 14:27 | disposition home or self-care (01) ==
PROVIDERS: PCP Family Medicine; Visit Provider Clinical Nurse Specialist Adult Health
DX: M25.532 Pain in left wrist (principal)
CPT/HCPCS: 73110

== ENCOUNTER 2023-03-31 10:55 | Outpatient (RCR) | payer BC, SELFPAY | END 2023-04-07 23:59 | disposition home or self-care (01) | LOC: SPT 10:55 | PROVIDERS: PCP Family Medicine; Visit Provider Nurse Practitioner Family | DX: M54.12 Radiculopathy, cervical region (principal); M62.838 Other muscle spasm | CPT/HCPCS: 97161 ==

== ENCOUNTER 2023-04-08 06:00 | Outpatient (RCR) | payer BC, SELFPAY | END 2023-05-07 23:59 | disposition home or self-care (01) | LOC: SPT 06:00 | PROVIDERS: PCP Family Medicine; Visit Provider Nurse Practitioner Family | DX: M54.12 Radiculopathy, cervical region (principal); M62.838 Other muscle spasm | CPT/HCPCS: 97110 ==

== ENCOUNTER 2023-05-08 06:00 | Outpatient (RCR) | payer BC, SELFPAY | END 2023-06-07 23:59 | disposition home or self-care (01) | LOC: SPT 06:00 | PROVIDERS: PCP Family Medicine; Visit Provider Nurse Practitioner Family | DX: M54.12 Radiculopathy, cervical region (principal); M62.838 Other muscle spasm | CPT/HCPCS: 97110 ==

== ENCOUNTER 2023-06-08 06:00 | Outpatient (RCR) | payer BC, SELFPAY | END 2023-07-08 23:59 | disposition home or self-care (01) | LOC: SPT 06:00 | PROVIDERS: PCP Family Medicine; Visit Provider Nurse Practitioner Family | DX: M54.12 Radiculopathy, cervical region (principal); M62.838 Other muscle spasm | CPT/HCPCS: 97110 ==

== ENCOUNTER 2023-07-08 13:28 | Outpatient (CLI) | payer BC, SELFPAY ==
--- NOTE | 2023-07-08 13:33 | XR_ITS ---
WS: [id number] Exam: XR cervical spine 3V* [id number] Date/Time of Exam: 07/08/2023 1:34 PM Reason For Exam: Neck pain Comparison 02/23/2023. There is anterior fusion at C4-5 and C5-6. The fusion is stable in appearance without change. No sign of hardware failure. Paravertebral soft tissues are unremarkable. The odontoid is intact. IMPRESSION: 1. Stable appearing cervical fusion without change or complication since the last exam.
== END 2023-07-08 13:29 | disposition home or self-care (01) ==
LOC: RAD 13:31
PROVIDERS: PCP Family Medicine; Visit Provider Nurse Practitioner Family
DX: M54.12 Radiculopathy, cervical region (principal); M54.2 Cervicalgia
CPT/HCPCS: 72040; 81000

== ENCOUNTER → 2024-03-03 07:56 | Outpatient (BNVA) | payer BC, SELFPAY | PROVIDERS: PCP Family Medicine; Visit Provider Clinical Nurse Specialist Adult Health | DX: R30.0 Dysuria (principal) | CPT/HCPCS: 81000; 87086 ==

== ENCOUNTER → 2024-03-23 07:24 | Outpatient (BNVA) | payer BC, SELFPAY | PROVIDERS: PCP Family Medicine; Visit Provider Clinical Nurse Specialist Adult Health | DX: R35.0 Frequency of micturition (principal) | CPT/HCPCS: 81000; 87086 ==

== ENCOUNTER 2024-03-25 12:46 | Emergency (ER) | payer BC, SELFPAY ==
[2024-03-25 13:05] VITALS: BP 138/84; PULSE 62; RESP 16; TEMP 36.6; O2SAT 98; BMI 29.2
--- NOTE | 2024-03-25 16:57 | XRR_ITS ---
PROCEDURE INFORMATION: Exam: XR Chest Exam date and time: 03/25/2024 5:16 PM Age: 39 years old Clinical indication: Cough and dyspnea; Patient HX: Dyspnea/cough; Left side numbness; Dizzy TECHNIQUE: Imaging protocol: Radiologic exam of the chest. Views: 1 view. COMPARISON: CR XR chest 1V portable [id number] 07/26/2020 9:05 PM FINDINGS: Lungs: Unremarkable. No consolidation. Pleural spaces: Unremarkable. No pleural effusion. No pneumothorax. Heart/Mediastinum: Unremarkable. No cardiomegaly. Bones/joints: No acute osseous abnormality. Partially visualized anterior cervical fusion hardware. XR/XR chest 1V portable [id number] IMPRESSION: No acute radiographic findings.
--- NOTE | 2024-03-25 16:57 | CTR_ITS ---
PROCEDURE INFORMATION: Exam: CT Head Without Contrast Exam date and time: 03/25/2024 5:25 PM Age: 39 years old Clinical indication: Dizziness and numbness / parasthesia; Left; Additional info: Left sided niumbness TECHNIQUE: Imaging protocol: Computed tomography of the head without contrast. Axial, coronal and sagittal reformatted images were created and reviewed. Radiation optimization: All CT scans at this facility use at least one of these dose optimization techniques: automated exposure control; mA and/or kV adjustment per patient size (includes targeted exams where dose is matched to clinical indication); or iterative reconstruction. COMPARISON: MR cervical spin wo con* [id number] 07/21/2021 2:06 PM RADIATION DOSE METRICS: Total DLP (mGy-cm): 993.68 FINDINGS: Brain: No CT evidence of acute intracranial hemorrhage or acute territorial infarction. No significant mass effect or midline shift. Basal cisterns patent. Cerebral ventricles: Normal in size and configuration. Paranasal sinuses: Unremarkable. No fluid levels. Mastoid air cells: Grossly unremarkable. Bones: Unremarkable. No acute fracture. Soft tissues: Grossly unremarkable. CT/CT head wo con* [id number] IMPRESSION: No CT evidence of acute intracranial pathology.
[2024-03-25 17:02] VITALS: BP 127/73; PULSE 61; RESP 16; O2SAT 93
--- NOTE | 2024-03-25 17:03 | ED_ITS ---
Documented by User: Clay Garcia DO 03/26/24 16:30 HPI - Dizziness 2 General: Chief Complaint: Dizziness Stated Complaint: left side numbness, dizzy Time Seen by Provider: 03/25/24 16:56 Source: patient Mode of arrival: ambulatory History of Present Illness: HPI Narrative: 43-year-old female presents to the emerg ency room complaining of right ear pain. 2 days ago she had a steroid and lidocaine injection for occipital neuralgia with a neurologist in [place]. States she feels very jittery. She has some pain behind her right ear. She feels that she feels dizzy and lethargic. No chest pain no fever sweats chills no abdominal pain no nausea vomiting or diarrhea no dysuria urgency or frequency. No focal neurologic deficits or ataxia. He reports left-sided being numb however on exam her sensation is equal bilaterally. MD elicited complaint: lightheadedness and other ( Shakiness ) Exacerbating factors: nothing Relieving factors: nothing Associated symptoms: Denies change in hearing, chest pain, chills, cough, diaphoresis, ear discharge, ear pressure, fevers/chills, headache(s), malaise, nausea, nasal congestion, palpitations, rash, short of breath, syncope, tinnitus, vomiting or weakness Associated neuro symptoms: Deny confusion, difficulty speaking, dysphagia, diplopia, extremity weakness, facial numbness, facial weakness, gait changes, numbness in extremities or visual changes Review of Systems 2 Const: Denies: fever(s), chills, malaise or diaphoresis ENMT: Denies: ear discharge, change in hearing, tinnitus or nasal congestion Card: Denies: chest pain, palpitations or syncope Resp: Denies: dyspnea GI: Denies: abdominal pain, nausea, vomiting or dysphagia : Denies: dysuria, urinary frequency or urinary urgency Musc: Denies: neck pain or back pain Skin/Breast: Denies: rash Neuro: Denies: headache(s), numbness in extremities or confusion PFSH ED 2 PFSH: Medical History Allergic rhinitis due to allergen PVC (premature ventricular contraction) Chronic steroid use Anxiety and depression No pertinent past medical history neghx: htn,dm,thyroid,dvt/pe PCP: Dr. Sharma Psychiatric care Chronic constipation Urge incontinence (~2017) mild symptoms GERD (gastroesophageal reflux disease) Migraine with aura Surgical History H/O discectomy (~2021) C4-5-- performed by Nimesh at [facility] H/O esophagogastroduodenoscopy (09/04/21) Status post colonoscopy (09/04/21) H/O section 1--10/04/2009 2--05/25/2017 History of cholecystectomy (~03/01/19) History of tonsillectomy H/O breast biopsy 1--12/2006 -benign 2--2009- benign H/O laminectomy (~06/2019) C5 C6 with fusion Family History Father Diabetes Hypertension Family/Other Diabetes Paternal uncle Grandmother Diabetes Paternal grandmother Maternal grandmother Family history of thyroid problem Maternal grandmother Heart disease Maternal and paternal Hypertension Maternal and paternal Grandfather Diabetes Paternal grandfather Maternal grandfather Hyperlipidemia Maternal grandmother Stroke Maternal grandfather Heart disease Paternal Hypertension Paternal Denies family history of Ovarian cancer Breast cancer Uterine cancer Physical Exam 2 Const: COMMON NORMALS: no acute distress GENERAL APPEARANCE: cooperative and comfortable ORIENTATION/CONSCIOUSNESS: Yes awake, Yes oriented to person, Yes oriented to place and Yes oriented to time HENMT: COMMON NORMALS: normocephalic, atraumatic and hearing grossly normal bilaterally HEAD & SCALP: normocephalic and atraumatic Resp: COMMON NORMALS: normal respiratory effort, No retractions, No use of accessory muscles and clear to auscultation bilaterally AUSCULTATION: clear to auscultation bilaterally Cardio: COMMON NORMALS: regular rate, regular rhythm and No murmurs present (Cardio) RATE: regular rate RHYTHM: regular rhythm GI: COMMON NORMALS: Soft to palpation and No hepatosplenomegaly present A USCULTATION: Yes normoactive bowel sounds PALPATION: Yes Soft to palpation, No Tenderness to palpation present (GI), No Guarding due to palpation present (GI) and Yes No hepatosplenomegaly present Extremity: COMMON NORMALS: normal to inspection, capillary refill normal, no clubbing, cyanosis or edema, no calf tenderness and no pedal edema Neuro: SENSORIUM/ORIENTATION: Yes oriented to person, Yes oriented to place and Yes oriented to time Skin: COMMON NORMALS: no rashes or lesions noted GENERAL SKIN EXAM: no rashes or lesions noted Course 2 Vital Signs: Vital signs: Vital Signs Temperature 97.9 F 03/25/24 13:05 Pulse Rate 75 03/25/24 20:00 Respiratory Rate 19 H 03/25/24 20:00 Blood Pressure 119/94 03/25/24 18:15 Pulse Oximetry 97 03/25/24 20:00 Oxygen Delivery Me thod Room Air 03/25/24 19:58 MDM - Dizziness Medical Decision Making Care signed out to Dr. Mccray at change of shift. See final notes for diagnosis and disposition. 39-year-old female originally seen by Dr. Garcia. Symptoms are somewhat improved. As long as she is not moving, or upright, she states she feels good. Chest x-ray is negative. Head CT is negative. Laboratory is not remarkable. She is given IV Depacon, ketorolac, Reglan as this could be an atypical type migraine. She has received IV fluids as well. We will walk her after these. She wishes to go home., Lab Data 03/25/24 18:42 03/25/24 18:42 Radiology Impressions Chest X-Ray 03/25/24 16:57 IMPRESSION: No acute radiographic findings. Head CT 03/25/24 16:57 IMPRESSION: No CT evidence of acute intracranial pathology. Laboratory Results WBC 11.01 10^3/uL (3.29-11.43) 03/25/24 18:42 RBC 4.05 10^6/uL (3.85-5.65) 03/25/24 18:42 Hgb 13.60 g/dL (11.27-16.99) 03/25/24 18:42 Hct 38.5 % (36-47) 03/25/24 18:42 MCV 95.1 fl (85-98) 03/25/24 18:42 MCH 33.6 pg (27-33) H 03/25/24 18:42 MCHC 35.3 g/dL (30-55) 03/25/24 18:42 RDW 12.1 % (12.1-15.1) 03/25/24 18:42 Plt Count 254 10^3/cmm (157-399) 03/25/24 18:42 MPV 9.6 fL (7.4-10.4) 03/25/24 18:42 Neut % (Auto) 59.0 % 03/25/24 18:42 Lymph % (Auto) 33.6 % 03/25/24 18:42 [place] % (Auto) 4.2 % 03/25/24 18: Eos % (Auto) 2.3 % 03/25/24 18: Baso % (Auto) 0.5 % 03/25/24 18: Neut # (Auto) 6.51 10^3/uL (1.8-7.7) 03/25/24 18: Lymph # (Auto) 3.7 10^3/uL (0.8-4.8) 03/25/24 18: [place] # (Auto) 0.5 10^3/uL (0.2-0.9) 03/25/24 18: Eos # (Auto) 0.3 10^3/uL (0.0-0.8) 03/25/24 18: Baso # (Auto) 0.1 10^3/uL (0.0-0.1) 03/25/24 18: Nucleated RBC % (auto) 0 % 03/25/24 18: Nucleated RBCs # 0.0 /100WBC 03/25/24 18:42 Sodium 139 mmol/L (136-145) 03/25/24 18: Potassium 4.2 mmol/L (3.5-5.1) 03/25/24 18: Chloride 103 mmol/L (98-107) 03/25/24 18: Carbon Dioxide 27 mmol/L (22-29) 03/25/24 18:42 Anion Gap 13.2 (5-19) 03/25/24 18: BUN 11 mg/dL (6-20) 03/25/24 18: Creatinine 0.9 mg/dL (0.5-0.9) 03/25/24 18: GFR Calculation 70.5 mL/min (90-130) L 03/25/24 18: Glucose 93 mg/dL (65-115) 03/25/24 18: Calculated Osmolality 287 mOsm/kg (285-295) 03/25/24 18:42 Calcium 8.4 mg/dL (8.5-10.5) L 03/25/24 18:42 Total Bilirubin 0.5 mg/dL (0.15-1.2) 03/25/24 18:42 AST 16 U/L (0-32) 03/25/24 18:42 ALT 13 U/L (0-33) 03/25/24 18:42 Alkaline Phosphatase 65 U/L (35-105) 03/25/24 18:42 Creatine Kinase 44 U/L (26-192) 03/25/24 18:42 Total Protein 6.8 g/dL (6.6-8.7) 03/25/24 18: Albumin 4.2 g/dL (3.5-5.2) 03/25/24 18: Globulin 2.6 g/dL (1.3-4.6) 03/25/24 18:42 Urine Color Yellow (Yellow) 03/25/24 17: Urine Appearance Hazy (CLEAR) A 03/25/24 17:27 Urine pH 6.5 (5-7) 03/25/24 17:27 Ur Specific [place] 1.010 (1.005-1.030) 03/25/24 17: Urine Protein Neg (Negative) 03/25/24 17: Urine Glucose (UA) Norm (Normal) 03/25/24 17:27 Urine Ketones 1+ (Negative) H 03/25/24 17:27 Urine Blood Neg (Negative) 03/25/24 17: Urine Nitrate Negative (Negative) 03/25/24 17: Urine Bilirubin 1+ (Negative) H 03/25/24 17:27 Urine Urobilinogen Norm mg/dL (Negative) 03/25/24 17:27 Ur Leukocyte Esterase Negative (Negative) 03/25/24 17: Urine RBC None /hpf (0-2) 03/25/24 17: Urine WBC None /hpf (0-5) 03/25/24 17:27 Ur Squamous Epith Cells 0-4 /hpf (0-5) H 03/25/24 17:27 Amorphous Sediment Not Reportable 03/25/24 17: Urine Bacteria Trace /hpf (NONE) 03/25/24 17: Discharge Plan Discharge Patient Disposition: Home Clinical Impression: Chronic neck pain, Cervico-occipital neuralgia Condition: Stable Prescriptions: No Action acetaminophen [Tylenol] 325 mg capsule 325 mg PO QID PRN (Reason: Pain) Zyrtec 10 mg capsule 10 mg PO DAILY Mirena 20 mcg/24 hours (5 yrs) 52 mg intrauterine device 1 insert INTRAUTERI DIRECTED polyethylene glycol 3350 [Miralax] 17 gram/dose powder 17 gm PO DAILY PRN (Reason: Abdominal Discomfort) cyclobenzaprine 10 mg tablet 10 mg PO TID PRN duloxetine [Cymbalta] 30 mg capsule,delayed release(DR/EC) 30 mg PO DAILY Qty: 90 0RF azelastine 137 mcg (0.1 %) aerosol,spray 2 spray intranasal BID PRN (Reason: congestion) Qty: 30 3RF Rx Instructions: administer into each nostril cefdinir 300 mg capsule 300 mg PO Q12H Qty: 14 0RF albuterol sulfate 90 mcg/actuation HFA aerosol inhaler 1 inh inhalation QID PRN Rx Instructions: 1-2 puffs every 4 to 6 hours as needed hydroxyzine HCl 50 mg tablet 50 mg PO QID PRN (Reason: insomnia/anxiety) Qty: 120 2RF guaifenesin 600 mg tablet extended release 12hr 600 mg PO BID PRN (Reason: congestion) tizanidine 4 mg capsule See Rx Instructions .ROUTE .COMPLEX Qty: 60 11RF Dose Instruction: TAKE 1 CAPSULE BY MOUTH EVERY 12 HOURS NEEDED FOR MUSCLE SPASM Rx Instructions: TAKE 1 CAPSULE BY MOUTH EVERY 12 HOURS NEEDED FOR MUSCLE SPASM pantoprazole 40 mg tablet,delayed release (DR/EC) See Rx Instructions .ROUTE .COMPLEX Qty: 90 3RF Dose Instruction: Take 1 tablet by mouth once daily Rx Instructions: Take 1 tablet by mouth once daily Discharge Orders: Discharge ED (Routine); Ordered 03/25/24 Ordered By: Ney Mccray Referrals: Rj Sharma MD [Primary Care Provider] - 1-3 days Patient Instructions: Opioid Safety, Pain Management Activity Restrictions/Additional Instructions: Return for worsening dizziness, weakness to 1 side, vision changes, trouble with language, any other concerning symptoms. Call your doctor Wednesday, for follow- up. Stay hydrated. Coding Level of Care Code ED Talent Acquisition Lead for Chg Fwd Documented by User: Ney Mccray DO 03/26/24 16:28 HPI - Dizziness 2 General: Chief Complaint: Dizziness Stated Complaint: left side numbness, dizzy Time Seen by Provider: 03/25/24 16:56 PFSH ED 2 PFSH: Medical History Allergic rhinitis due to allergen PVC (premature ventricular contraction) Chronic steroid use Anxiety and depression No pertinent past medical history neghx: htn,dm,thyroid,dvt/pe PCP: Dr. Sharma Psychiatric care Chronic constipation Urge incontinence (~2017) mild symptoms GERD (gastroesophageal reflux disease) Migraine with aura Surgical History H/O discectomy (~2021) C4-5-- performed by Nimesh at [facility] H/O esophagogastroduodenoscopy (09/04/21) Status post colonoscopy (09/04/21) H/O section 1--10/04/2009 2--05/25/2017 History of cholecystectomy (~03/01/19) History of tonsillectomy H/O breast biopsy 1--12/2006 -benign 2--2009- benign H/O laminectomy (~06/2019) C5 C6 with fusion Family History Father Diabetes Hypertension Family/Other Diabetes Paternal uncle Grandmother Diabetes Paternal grandmother Maternal grandmother Family history of thyroid problem Maternal grandmother Heart disease Maternal and paternal Hypertension Maternal and paternal Grandfather Diabetes Paternal grandfather Maternal grandfather Hyperlipidemia Maternal grandmother Stroke Maternal grandfather Heart disease Paternal Hypertension Paternal Denies family history of Ovarian cancer Breast cancer Uterine cancer Course 2 Vital Signs: Vital signs: Vital Signs Temperature 97.9 F 03/25/24 13:05 Pulse Rate 75 03/25/24 20:00 Respiratory Rate 19 H 03/25/24 20:00 Blood Pressure 119/94 03/25/24 18:15 Pulse Oximetry 97 03/25/24 20:00 Oxygen Delivery Me thod Room Air 03/25/24 19:58 MDM - Dizziness Medical Decision Making 39-year-old female originally seen by Dr. Garcia. Symptoms are somewhat improved. As long as she is not moving, or upright, she states she feels good. Chest x-ray is negative. Head CT is negative. Laboratory is not remarkable. She is given IV Depacon, ketorolac, Reglan as this could be an atypical type migraine. She has received IV fluids as well. We will walk her after these. She wishes to go home., Lab Data 03/25/24 18:42 03/25/24 18:42 Radiology Impressions Chest X-Ray 03/25/24 16:57 IMPRESSION: No acute radiographic findings. Head CT 03/25/24 16:57 IMPRESSION: No CT evidence of acute intracranial pathology. Laboratory Results WBC 11.01 10^3/uL (3.29-11.43) 03/25/24 18:42 RBC 4.05 10^6/uL (3.85-5.65) 03/25/24 18:42 Hgb 13.60 g/dL (11.27-16.99) 03/25/24 18:42 Hct 38.5 % (36-47) 03/25/24 18:42 MCV 95.1 fl (85-98) 03/25/24 18:42 MCH 33.6 pg (27-33) H 03/25/24 18:42 MCHC 35.3 g/dL (30-55) 03/25/24 18:42 RDW 12.1 % (12.1-15.1) 03/25/24 18:42 Plt Count 254 10^3/cmm (157-399) 03/25/24 18:42 MPV 9.6 fL (7.4-10.4) 03/25/24 18:42 Neut % (Auto) 59.0 % 03/25/24 18:42 Lymph % (Auto) 33.6 % 03/25/24 18:42 [place] % (Auto) 4.2 % 03/25/24 18:42 Eos % (Auto) 2.3 % 03/25/24 18:42 Baso % (Auto) 0.5 % 03/25/24 18:42 Neut # (Auto) 6.51 10^3/uL (1.8-7.7) 03/25/24 18:42 Lymph # (Auto) 3.7 10^3/uL (0.8-4.8) 03/25/24 18:42 [place] # (Auto) 0.5 10^3/uL (0.2-0.9) 03/25/24 18:42 Eos # (Auto) 0.3 10^3/uL (0.0-0.8) 03/25/24 18:42 Baso # (Auto) 0.1 10^3/uL (0.0-0.1) 03/25/24 18:42 Nucleated RBC % (auto) 0 % 03/25/24 18: Nucleated RBCs # 0.0 /100WBC 03/25/24 18:42 Sodium 139 mmol/L (136-145) 03/25/24 18:42 Potassium 4.2 mmol/L (3.5-5.1) 03/25/24 18:42 Chloride 103 mmol/L (98-107) 03/25/24 18:42 Carbon Dioxide 27 mmol/L (22-29) 03/25/24 18:42 Anion Gap 13.2 (5-19) 03/25/24 18:42 BUN 11 mg/dL (6-20) 03/25/24 18:42 Creatinine 0.9 mg/dL (0.5-0.9) 03/25/24 18:42 GFR Calculation 70.5 mL/min (90-130) L 03/25/24 18:42 Glucose 93 mg/dL (65-115) 03/25/24 18:42 Calculated Osmolality 287 mOsm/kg (285-295) 03/25/24 18:42 Calcium 8.4 mg/dL (8.5-10.5) L 03/25/24 18:42 Total Bilirubin 0.5 mg/dL (0.15-1.2) 03/25/24 18:42 AST 16 U/L (0-32) 03/25/24 18:42 ALT 13 U/L (0-33) 03/25/24 18:42 Alkaline Phosphatase 65 U/L (35-105) 03/25/24 18:42 Creatine Kinase 44 U/L (26-192) 03/25/24 18:42 Total Protein 6.8 g/dL (6.6-8.7) 03/25/24 18:42 Albumin 4.2 g/dL (3.5-5.2) 03/25/24 18:42 Globulin 2.6 g/dL (1.3-4.6) 03/25/24 18:42 Urine Color Yellow (Yellow) 03/25/24 17:27 Urine Appearance Hazy (CLEAR) A 03/25/24 17:27 Urine pH 6.5 (5-7) 03/25/24 17:27 Ur Specific [place] 1.010 (1.005-1.030) 03/25/24 17:27 Urine Protein Neg (Negative) 03/25/24 17:27 Urine Glucose (UA) Norm (Normal) 03/25/24 17:27 Urine Ketones 1+ (Negative) H 03/25/24 17:27 Urine Blood Neg (Negative) 03/25/24 17: Urine Nitrate Negative (Negative) 03/25/24 17:27 Urine Bilirubin 1+ (Negative) H 03/25/24 17:27 Urine Urobilinogen Norm mg/dL (Negative) 03/25/24 17:27 Ur Leukocyte Esterase Negative (Negative) 03/25/24 17:27 Urine RBC None /hpf (0-2) 03/25/24 17:27 Urine WBC None /hpf (0-5) 03/25/24 17:27 Ur Squamous Epith Cells 0-4 /hpf (0-5) H 03/25/24 17:27 Amorphous Sediment Not Reportable 03/25/24 17:27 Urine Bacteria Trace /hpf (NONE) 03/25/24 17:27 All radiology interpretation(s) finalized by discharge Discharge Plan Discharge Patient Disposition: Home Clinical Impression: Chronic neck pain, Cervico-occipital neuralgia Condition: Stable Prescriptions: No Action acetaminophen [Tylenol] 325 mg capsule 325 mg PO QID PRN (Reason: Pain) Zyrtec 10 mg capsule 10 mg PO DAILY Mirena 20 mcg/24 hours (5 yrs) 52 mg intrauterine device 1 insert INTRAUTERI DIRECTED polyethylene glycol 3350 [Miralax] 17 gram/dose powder 17 gm PO DAILY PRN (Reason: Abdominal Discomfort) cyclobenzaprine 10 mg tablet 10 mg PO TID PRN duloxetine [Cymbalta] 30 mg capsule,delayed release(DR/EC) 30 mg PO DAILY Qty: 90 0RF azelastine 137 mcg (0.1 %) aerosol,spray 2 spray intranasal BID PRN (Reason: congestion) Qty: 30 3RF Rx Instructions: administer into each nostril cefdinir 300 mg capsule 300 mg PO Q12H Qty: 14 0RF albuterol sulfate 90 mcg/actuation HFA aerosol inhaler 1 inh inhalation QID PRN Rx Instructions: 1-2 puffs every 4 to 6 hours as needed hydroxyzine HCl 50 mg tablet 50 mg PO QID PRN (Reason: insomnia/anxiety) Qty: 120 2RF guaifenesin 600 mg tablet extended release 12hr 600 mg PO BID PRN (Reason: congestion) tizanidine 4 mg capsule See Rx Instructions .ROUTE .COMPLEX Qty: 60 11RF Dose Instruction: TAKE 1 CAPSULE BY MOUTH EVERY 12 HOURS NEEDED FOR MUSCLE SPASM Rx Instructions: TAKE 1 CAPSULE BY MOUTH EVERY 12 HOURS NEEDED FOR MUSCLE SPASM pantoprazole 40 mg tablet,delayed release (DR/EC) See Rx Instructions .ROUTE .COMPLEX Qty: 90 3RF Dose Instruction: Take 1 tablet by mouth once daily Rx Instructions: Take 1 tablet by mouth once daily Discharge Orders: Discharge ED (Routine); Ordered 03/25/24 Ordered By: Ney Mccray Referrals: Rj Sharma MD [Primary Care Provider] - 1-3 days Patient Instructions: Opioid Safety, Pain Management Activity Restrictions/Additional Instructions: Return for worsening dizziness, weakness to 1 side, vision changes, trouble with language, any other concerning symptoms. Call your doctor Wednesday, for follow- up. Stay hydrated. Coding Level of Care Code ED Talent Acquisition Lead for Fredi French
--- NOTE | 2024-03-25 17:13 | ECG_ITS ---
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 Measurements Intervals [place] Rate: 55 P: 55 SD: 145 QRS: 9 QRSD: 74 T: 32 QT: 434 QTc: 417 Interpretive Statements SINUS BRADYCARDIA LOW QRS VOLTAGE IN PRECORDIAL LEADS [QRS DEFLECTION < 1.0 mV IN CHEST LEADS] No previous ECG available for comparison Electronically Signed On 03-26-2024 13:31:54 CDT by Dayanara Birch M.D. [id number]
[2024-03-25 17:30] VITALS: BP 127/73; PULSE 60; RESP 15; O2SAT 93
[2024-03-25 17:53] LABS: Urine Appearance Hazy (CLEAR); Urine Color Yellow (Yellow); pH Urine 6.5 (5-7)
[2024-03-25 17:54] LABS: Add Urine Microscopic? YES; Bilirubin Urine 1+ (Negative); Blood Urine Neg (Negative); Glucose Urine UA Norm (Normal); Ketones Urine 1+ (Negative); Leukocyte Esterase Urine Negative (Negative); Nitrate Urine Negative (Negative); Protein Urine Neg (Negative); Urobilinogen Urine Norm (Negative)
[2024-03-25 17:59] LABS: Add Urine Culture? No; Bacteria Urine TRACE /hpf; Squamous Epithelial Cell Urine 0-4 /hpf (0-5)
[2024-03-25 18:15] VITALS: BP 119/94; PULSE 93; RESP 25; O2SAT 94
[2024-03-25 18:49] LABS: Basophils # 0.1 10^3/uL (0.0-0.1); Basophils % 0.5 %; Eosinophils # 0.3 10^3/uL (0.0-0.8); Eosinophils % 2.3 %; Hematocrit 38.5 % (36-47); Lymphocytes # 3.7 10^3/uL (0.8-4.8); Lymphocytes % 33.6 %; Mean Corpuscular HGB Conc 35.3 g/dL (30-55); Mean Corpuscular Hemoglobin 33.6 pg (27-33); Mean Corpuscular Volume 95.1 fl (85-98); Mean Platelet Volume 9.6 fL (7.4-10.4); Monocytes # 0.5 10^3/uL (0.2-0.9); Monocytes % 4.2 %; Neutrophils # 6.51 10^3/uL (1.8-7.7); Nucleated Red Blood Cells % 0 %; Platelet Count 254 10^3/cmm (157-399); Red Blood Count 4.05 10^6/uL (3.85-5.65); Red Cell Distribution Width 12.1 % (12.1-15.1); White Blood Count 11.01 10^3/uL (3.29-11.43)
--- NOTE | 2024-03-25 18:49 | PC.NURSE ---
Assumed care from Aliyah VALADEZ at this time.
[2024-03-25 19:04] LABS: Alanine Aminotransferase 13 U/L (0-33); Albumin Level 4.2 g/dL (3.5-5.2); Alkaline Phosphatase 65 U/L (35-105); Anion Gap 13.2 (5-19); Aspartate Amino Transferase 16 U/L (0-32); Blood Urea Nitrogen 11 mg/dL (6-20); Calcium 8.4 mg/dL (8.5-10.5); Carbon Dioxide 27 mmol/L (22-29); Chloride 103 mmol/L (98-107); Creatine Phosphokinase 44 U/L (26-192); Creatinine Clr Calc Pharmacy 82.9255; Globulin 2.6 g/dL (1.3-4.6); Glomerular Filtration Rate 70.5 mL/min (90-130); Glucose 93 mg/dL (65-115); Osmolality Calculated 287 mOsm/kg (285-295); Potassium 4.2 mmol/L (3.5-5.1); Sodium 139 mmol/L (136-145); Total Bilirubin 0.5 mg/dL (0.15-1.2); Total Protein 6.8 g/dL (6.6-8.7)
[2024-03-25] MEDS: valproic acid inj 500 MG in sodium chloride 0.9% 50 ML 55 MG IV (19:05)
[2024-03-25] MEDS: sodium chloride 0.9% 1,000 ML 999 ML IV (19:05)
[2024-03-25] MEDS: metoclopramide 5 mg/mL SDV 2 mL 10 MG IVP (19:06)
[2024-03-25] MEDS: ketorolac 30 mg/mL INJ 15 MG IVP (19:06)
[2024-03-25 19:58] VITALS: PULSE 75; RESP 19; O2SAT 97
--- NOTE | 2024-03-25 19:59 | PC.NURSE ---
Patient was walked per instruction of Dr Mccray. Patient denied weakness, dizziness; patient did speak to Dr Mccray upon ambulation and told him that she was feeling better. Patient was shortly discharged afterwards.
[2024-03-25 20:00] VITALS: PULSE 75; RESP 19; O2SAT 97
== END 2024-03-25 19:53 | disposition home or self-care (01) ==
PROVIDERS: Family Medicine; Emergency Provider Emergency Medicine; PCP Family Medicine
DX: M54.2 Cervicalgia (principal); M54.81 Occipital neuralgia
CPT/HCPCS: 70450; 71045; 80053; 81001; 82550; 85025; 93005; 96365; 96375; 99285; J1885; J2765; J3490; J7030

== ENCOUNTER 2024-04-02 18:45 | Emergency (ER) | payer BC, SELFPAY ==
[2024-04-02 18:55] VITALS: BP 125/82; PULSE 74; RESP 16; TEMP 36.8; O2SAT 99; BMI 29.2
[2024-04-02 20:39] VITALS: BP 119/70; PULSE 67; RESP 15; O2SAT 97
[2024-04-02 20:39] LABS: Basophils # 0.1 10^3/uL (0.0-0.1); Basophils % 0.7 %; Eosinophils # 0.2 10^3/uL (0.0-0.8); Eosinophils % 1.7 %; Hematocrit 42.3 % (36-47); Lymphocytes # 3.5 10^3/uL (0.8-4.8); Lymphocytes % 33.7 %; Mean Corpuscular HGB Conc 34.5 g/dL (30-55); Mean Corpuscular Hemoglobin 33.6 pg (27-33); Mean Corpuscular Volume 97.5 fl (85-98); Mean Platelet Volume 9.7 fL (7.4-10.4); Monocytes # 0.4 10^3/uL (0.2-0.9); Monocytes % 4.2 %; Neutrophils # 6.15 10^3/uL (1.8-7.7); Neutrophils % 59.3 %; Nucleated Red Blood Cells % 0 %; Platelet Count 267 10^3/cmm (157-399); Red Blood Count 4.34 10^6/uL (3.85-5.65); Red Cell Distribution Width 12.2 % (12.1-15.1); White Blood Count 10.38 10^3/uL (3.29-11.43)
[2024-04-02 20:54] LABS: Alanine Aminotransferase 22 U/L (0-33); Albumin Level 4.5 g/dL (3.5-5.2); Alkaline Phosphatase 72 U/L (35-105); Anion Gap 14.3 (5-19); Aspartate Amino Transferase 19 U/L (0-32); Blood Urea Nitrogen 14 mg/dL (6-20); Calcium 8.8 mg/dL (8.5-10.5); Carbon Dioxide 24 mmol/L (22-29); Chloride 104 mmol/L (98-107); Glomerular Filtration Rate 62.4 mL/min (90-130); Glucose 94 mg/dL (65-115); Osmolality Calculated 286 mOsm/kg (285-295); Potassium 4.3 mmol/L (3.5-5.1); Sodium 138 mmol/L (136-145); Total Bilirubin 0.3 mg/dL (0.15-1.2); Total Protein 7.5 g/dL (6.6-8.7)
--- NOTE | 2024-04-02 20:58 | ED_ITS ---
HPI - Dizziness 2 General: Chief Complaint: Dizziness Stated Complaint: dizzy shaky sob headach n/v prev neck injury Time Seen by Provider: 04/02/24 20:48 History of Present Illness: HPI Narrative: 39-year-old female comes in today with c omplaints of headache and shakiness. Patient reports that she has had symptoms ever since she had an occipital nerve block done for chronic neck pain and headache. Patient appears nontoxic. Patient appears in no acute distress. Patient was seen 1 week ago for the same concerns and was treated for migraine headache. Patient has CT scan done at that time which showed no significant abnormalities. Lab work was also unremarkable. Associated symptoms: Reports headache(s) Review of Systems 2 General: Reports: 10 or more systems reviewed and unremarkable except in HPI and below Neuro: Reports: headache(s) PFSH ED 2 PFSH: Medical History Allergic rhinitis due to allergen PVC (premature ventricular contraction) Chronic steroid use Anxiety and depression No pertinent past medical history neghx: htn,dm,thyroid,dvt/pe PCP: Dr. Sharma [facility] Chronic constipation Urge incontinence (~2017) mild symptoms GERD (gastroesophageal reflux disease) Migraine with aura Surgical History H/O discectomy (~2021) C4-5-- performed by Nimesh at [facility] H/O esophagogastroduodenoscopy (09/04/21) Status post colonoscopy (09/04/21) H/O section 1--10/04/2009 2--05/25/2017 History of cholecystectomy (~03/01/19) History of tonsillectomy H/O breast biopsy 1--12/2006 -benign 2--2009- benign H/O laminectomy (~06/2019) C5 C6 with fusion Family History Father Diabetes Hypertension Family/Other Diabetes Paternal uncle Grandmother Diabetes Paternal grandmother Maternal grandmother Family history of thyroid problem Maternal grandmother Heart disease Maternal and paternal Hypertension Maternal and paternal Grandfather Diabetes Paternal grandfather Maternal grandfather Hyperlipidemia Maternal grandmother Stroke Maternal grandfather Heart disease Paternal Hypertension Paternal Denies family history of Ovarian cancer Breast cancer Uterine cancer Physical Exam 2 Const: COMMON NORMALS: alert HENMT: COMMON NORMALS: normocephalic HEAD & SCALP: normocephalic Neck/C-Spine: COMMON NORMALS: full ROM Resp: COMMON NORMALS: normal respiratory effort and clear to auscultation bilaterally AUSCULTATION: clear to auscultation bilaterally Cardio: COMMON NORMALS: regular rate and regular rhythm RATE: regular rate RHYTHM: regular rhythm GI: COMMON NORMALS: Soft to palpation and non-tender PALPATION: Yes Soft to palpation : COMMON NORMALS: Yes no CVA tenderness BLADDER/KIDNEY EXAM: Yes no CVA tenderness Back/Pelvis: COMMON NORMALS: no CVA tenderness Extremity: COMMON NORMALS: full ROM Neuro: SENSORIUM/ORIENTATION: Yes alert Skin: COMMON NORMALS: turgor normal GENERAL SKIN EXAM: turgor normal Course 2 Vital Signs: Vital signs: Vital Signs Temperature 98.3 F 04/02/24 18:55 Pulse Rate 69 04/02/24 21:00 Respiratory Rate 15 04/02/24 20:39 Blood Pressure 122/78 04/02/24 21:00 Pulse Oximetry 99 04/02/24 21:00 Oxygen Delivery Me thod Room Air 04/02/24 21:00 MDM - Dizziness Medical Decision Making 39-year-old female comes in today with persistent headache with dizziness and nausea for the last week. Patient reports the dizziness started after an occipital nerve block. Patient was seen 1 week ago and had a CT scan which showed no significant abnormalities. Laboratory values were unremarkable. Patient was treated with a migraine cocktail with some relief of discomfort. Differential diagnosis includes not limited to tension headache, malingering, cervical radiculopathy, intervertebral disc disease, facet arthritis, discitis, abscess. CBC and CMP noted some mild increase in creatinine but otherwise unremarkable. Patient was treated for migraine headache with cocktail of ketorolac, dexamethasone, Reglan, and Ativan. Patient had significant improvement of symptoms. CT of the cervical spine showed no acute abnormality reviewed exam with patient with recommendations for follow-up with primary care or pain director career services regarding persistent symptoms and need for further treatment as needed. Lab Data 04/02/24 20:30 04/02/24 20:30 Radiology Impressions Cervical Spine CT 04/02/24 21:00 IMPRESSION: 1. No evidence of fracture or subluxation of the cervical spine. Laboratory Results WBC 10.38 10^3/uL (3.29-11.43) 04/02/24 20: RBC 4.34 10^6/uL (3.85-5.65) 04/02/24 20:30 Hgb 14.60 g/dL (11.27-16.99) 04/02/24 20: Hct 42.3 % (36-47) 04/02/24 20: MCV 97.5 fl (85-98) 04/02/24 20: MCH 33.6 pg (27-33) H 04/02/24 20: MCHC 34.5 g/dL (30-55) 04/02/24 20: RDW 12.2 % (12.1-15.1) 04/02/24 20: Plt Count 267 10^3/cmm (157-399) 04/02/24 20: MPV 9.7 fL (7.4-10.4) 04/02/24 20: Neut % (Auto) 59.3 % 04/02/24 20: Lymph % (Auto) 33.7 % 04/02/24 20:30 [place] % (Auto) 4.2 % 04/02/24 20: Eos % (Auto) 1.7 % 04/02/24 20: Baso % (Auto) 0.7 % 04/02/24 20:30 Neut # (Auto) 6.15 10^3/uL (1.8-7.7) 04/02/24 20: Lymph # (Auto) 3.5 10^3/uL (0.8-4.8) 04/02/24 20:30 [place] # (Auto) 0.4 10^3/uL (0.2-0.9) 04/02/24 20: Eos # (Auto) 0.2 10^3/uL (0.0-0.8) 04/02/24 20: Baso # (Auto) 0.1 10^3/uL (0.0-0.1) 04/02/24 20: Nucleated RBC % (auto) 0 % 04/02/24 20: Nucleated RBCs # 0.0 /100WBC 04/02/24 20:30 Sodium 138 mmol/L (136-145) 04/02/24 20:30 Potassium 4.3 mmol/L (3.5-5.1) 04/02/24 20:30 Chloride 104 mmol/L (98-107) 04/02/24 20:30 Carbon Dioxide 24 mmol/L (22-29) 04/02/24 20:30 Anion Gap 14.3 (5-19) 04/02/24 20:30 BUN 14 mg/dL (6-20) 04/02/24 20:30 Creatinine 1.0 mg/dL (0.5-0.9) H 04/02/24 20:30 GFR Calculation 62.4 mL/min (90-130) L 04/02/24 20:30 Glucose 94 mg/dL (65-115) 04/02/24 20:30 Calculated Osmolality 286 mOsm/kg (285-295) 04/02/24 20:30 Calcium 8.8 mg/dL (8.5-10.5) 04/02/24 20:30 Total Bilirubin 0.3 mg/dL (0.15-1.2) 04/02/24 20:30 AST 19 U/L (0-32) 04/02/24 20:30 ALT 22 U/L (0-33) 04/02/24 20:30 Alkaline Phosphatase 72 U/L (35-105) 04/02/24 20:30 Total Protein 7.5 g/dL (6.6-8.7) 04/02/24 20:30 Albumin 4.5 g/dL (3.5-5.2) 04/02/24 20:30 Globulin 3.0 g/dL (1.3-4.6) 04/02/24 20:30 All radiology interpretation(s) finalized by discharge Discharge Plan Discharge Patient Disposition: Home Clinical Impression: Headache Qualifiers: Headache type: unspecified Headache chronicity pattern: unspecified pattern I ntractability: intractable Qualified Code(s): R51.9 - Headache, unspecified Condition: Stable Prescriptions: No Action acetaminophen [Tylenol] 325 mg capsule 325 mg PO QID PRN (Reason: Pain) Zyrtec 10 mg capsule 10 mg PO DAILY Mirena 20 mcg/24 hours (5 yrs) 52 mg intrauterine device 1 insert INTRAUTERI DIRECTED polyethylene glycol 3350 [Miralax] 17 gram/dose powder 17 gm PO DAILY PRN (Reason: Abdominal Discomfort) cyclobenzaprine 10 mg tablet 10 mg PO TID PRN duloxetine [Cymbalta] 30 mg capsule,delayed release(DR/EC) 30 mg PO DAILY Qty: 90 0RF azelastine 137 mcg (0.1 %) aerosol,spray 2 spray intranasal BID PRN (Reason: congestion) Qty: 30 3RF Rx Instructions: administer into each nostril cefdinir 300 mg capsule 300 mg PO Q12H Qty: 14 0RF albuterol sulfate 90 mcg/actuation HFA aerosol inhaler 1 inh inhalation QID PRN Rx Instructions: 1-2 puffs every 4 to 6 hours as needed hydroxyzine HCl 50 mg tablet 50 mg PO QID PRN (Reason: insomnia/anxiety) Qty: 120 2RF guaifenesin 600 mg tablet extended release 12hr 600 mg PO BID PRN (Reason: congestion) tizanidine 4 mg capsule See Rx Instructions .ROUTE .COMPLEX Qty: 60 11RF Dose Instruction: TAKE 1 CAPSULE BY MOUTH EVERY 12 HOURS NEEDED FOR MUSCLE SPASM Rx Instructions: TAKE 1 CAPSULE BY MOUTH EVERY 12 HOURS NEEDED FOR MUSCLE SPASM pantoprazole 40 mg tablet,delayed release (DR/EC) See Rx Instructions .ROUTE .COMPLEX Qty: 90 3RF Dose Instruction: Take 1 tablet by mouth once daily Rx Instructions: Take 1 tablet by mouth once daily Discharge Orders: Discharge ED (Routine); Ordered 04/02/24 Ordered By: Jose Guadalupe Mayers Referrals: Rj Sharma MD [Primary Care Provider] - Discharge Diet: Usual diet Discharge Activity: Increase activity as tolerated Patient Instructions: General Headache (ED) Activity Restrictions/Additional Instructions: Drink plenty of water and fluids. Continue with routine medications as directed. Follow-up with primary care for further instructions. Return to ED for new concerns. Coding Level of Care Code ED Slitter Cut Off Operator for Fredi French
[2024-04-02 21:00] VITALS: BP 122/78; PULSE 69; O2SAT 99
--- NOTE | 2024-04-02 21:00 | CTR_ITS ---
PROCEDURE INFORMATION: Exam: CT Cervical Spine Without Contrast Exam date and time: 04/02/2024 9:23 PM Age: 39 years old Clinical indication: Neck pain and radicular pain (radiculopathy); Location of radicular pain not specified; Prior surgery; Surgery date: 6+ months; Surgery type: Discectomy with fusion; Patient HX: C/O dizziness with neck pain radiating to left upper extremity since occipital nerve block approximately two weeks ago. ; Additional info: Neck pain, headache, dizziness TECHNIQUE: Imaging protocol: Computed tomography of the cervical spine without contrast. Radiation optimization: All CT scans at this facility use at least one of these dose optimization techniques: automated exposure control; mA and/or kV adjustment per patient size (includes targeted exams where dose is matched to clinical indication); or iterative reconstruction. COMPARISON: MR cervical spin wo con* [id number] 07/21/2021 2:06 PM RADIATION DOSE METRICS: Total DLP (mGy-cm): 637.27 FINDINGS: Bones/joints: C4 through 6 ACDF. No evidence of acute fracture or subluxation of the cervical spine. The craniocervical junction including the atlantoaxial and atlantooccipital articulations are intact. C2-C3: No central or foraminal stenosis. C3-C4: No central or foraminal stenosis. C4-C5: Fusion level. Uncovertebral hypertrophy results in mild right-sided foraminal stenosis. No central stenosis. C5-C6: Fusion level. No central or foraminal stenosis. C6-C7: No central or foraminal stenosis. C7-T1: No central or foraminal stenosis. Lungs: The visualized lung apices are clear. Soft tissues: No gross soft tissue abnormality. No significant prevertebral edema. No evidence of fluid collection or hematoma. CT/CT cervical spin wo con* [id number] IMPRESSION: 1. No evidence of fracture or subluxation of the cervical spine.
[2024-04-02] MEDS: sodium chloride 0.9% 1,000 ML 999 ML IV (21:15)
[2024-04-02] MEDS: metoclopramide 5 mg/mL SDV 2 mL 10 MG IVP (21:16)
[2024-04-02] MEDS: ketorolac 30 mg/mL INJ 15 MG IVP (21:16)
[2024-04-02] MEDS: dexamethasone 10 mg/mL INJ IVP (21:16)
[2024-04-02] MEDS: LORazepam 2 mg/mL INJ 10 mL MDV 1 MG IVP (22:02)
[2024-04-02 22:57] VITALS: BP 117/79; PULSE 72; RESP 15; O2SAT 97
== END 2024-04-02 22:58 | disposition home or self-care (01) ==
PROVIDERS: Emergency Medicine; Emergency Provider Nurse Practitioner Family; PCP Family Medicine
DX: R51.9 Headache, unspecified (principal)
CPT/HCPCS: 72125; 80053; 85025; 96361; 96374; 96375; 99285; J1100; J1885; J2060; J2765; J7030

== ENCOUNTER 2024-05-08 14:10 | Emergency (ER) | payer OTHER, SELFPAY ==
[2024-05-08 15:03] VITALS: BP 110/66; PULSE 74; RESP 14; TEMP 36.9; O2SAT 98
--- NOTE | 2024-05-08 15:18 | ED_ITS ---
HPI - Animal Bite General: Chief Complaint: Animal Bite Stated Complaint: dog bite Time Seen by Provider: 05/08/24 15:13 Source: patient Mode of arrival: ambulatory Limitations: no limitations History of Present Illness: Patient is a 39-year-old female presents to ED today for evaluation of a dog bite to her right thigh that she sustained approximately 2 to 3 days ago. 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 She reported to employee health today where her tetanus was updated. They were able to contact the dog statistician mathematical stated the dog is not up-to-date on rabies immunizations and thus patient was instructed to come to the emergency department to initiate rabies PEP. She states she has been keeping the bite clean at home and has noticed a small amount of bruising to the bite but otherwise she does not feel like it is infected. complaint: animal bite Onset (ago): day(s) Animal: dog Description of animal: unknown animal and immunizations unknown Mechanism: bite Location - Extremities: Right: thigh Context: other (came into animal's yard/territory ) Associated symptoms: Reports no associated symptoms; Deny fever(s) Treatments prior to arrival: irrigation Related Data: Patient tetanus UTD: Yes Review of Systems Const: Denies: fever(s) Musc: Reports: extremity pain; Denies: extremity swelling, joint pain or joint swelling Skin/Breast: Reports: other (dog bite R thigh) Neuro: Denies: numbness in extremities, weakness in extremities, sensory changes or difficulty walking [facility] ED PFSH: Medical History Allergic rhinitis due to allergen PVC (premature ventricular contraction) Chronic steroid use Anxiety and depression No pertinent past medical history neghx: htn,dm,thyroid,dvt/pe PCP: Dr. Sharma Psychiatric care Chronic constipation Urge incontinence (~2017) mild symptoms GERD (gastroesophageal reflux disease) Migraine with aura Surgical History H/O discectomy (~2021) C4-5-- performed by Nimesh at [facility] H/O esophagogastroduodenoscopy (09/04/21) Status post colonoscopy (09/04/21) H/O section 1--10/04/2009 2--05/25/2017 History of cholecystectomy (~03/01/19) History of tonsillectomy H/O breast biopsy 1--12/2006 -benign 2--2009- benign H/O laminectomy (~06/2019) C5 C6 with fusion Family History Father Diabetes Hypertension Family/Other Diabetes Paternal uncle Grandmother Diabetes Paternal grandmother Maternal grandmother Family history of thyroid problem Maternal grandmother Heart disease Maternal and paternal Hypertension Maternal and paternal Grandfather Diabetes Paternal grandfather Maternal grandfather Hyperlipidemia Maternal grandmother Stroke Maternal grandfather Heart disease Paternal Hypertension Paternal Denies family history of Ovarian cancer Breast cancer Uterine cancer Physical Exam Const: COMMON NORMALS: no acute distress, average body habitus, no limitations, healthy appearing, alert and well nourished Extremity: COMMON NORMALS: full ROM, no joint enlargement, no clubbing, cyanosis or edema, no calf tenderness and no pedal edema GENERAL: Yes normal exam except as noted RIGHT LOWER EXTREMITY: Yes upper leg (small puncture wound R lateral thigh; ecchymosis present) OTHER: no erythema/warmth or discharge; no significant edema; small quarter sized surrounding ecchymosis Neuro: COMMON NORMALS: moves all extremities, no focal motor deficits and no sensory deficits noted SENSORIUM/ORIENTATION: Yes alert Skin: NARRATIVE SKIN EXAM: small puncture wound/dog bite R lateral thigh Course Vital Signs: Vital signs: Vital Signs Temperature 98.4 F 05/08/24 15:03 Pulse Rate 74 05/08/24 15:03 Respiratory Rate 14 05/08/24 15:03 Blood Pressure 110/66 05/08/24 15:03 Pulse Oximetry 98 05/08/24 15:03 Oxygen Delivery Me thod Room Air 05/08/24 15:03 MDM - Animal Bite Medical Decision Making Patient had her tetanus updated through employee health. She will be placed on antibiotics. Rabies PEP initiated. Differential Diagnosis Likely dog bite Medical Records I reviewed the patient's medical records. No radiology studies performed this visit Discharge Plan Discharge Patient Disposition: Home Clinical Impression: Need for post exposure prophylaxis for rabies Dog bite of right thigh Qualifiers: Encounter type: initial encounter Qualified Code(s): S71.151A - Open bite, right thigh, initial encounter Condition: Stable Prescriptions: New amoxicillin-pot clavulanate 875-125 mg tablet 1 tab PO BID Qty: 14 0RF No Action acetaminophen [Tylenol] 325 mg capsule 325 mg PO QID PRN (Reason: Pain) Zyrtec 10 mg capsule 10 mg PO DAILY Mirena 20 mcg/24 hours (5 yrs) 52 mg intrauterine device 1 insert INTRAUTERI DIRECTED polyethylene glycol 3350 [Miralax] 17 gram/dose powder 17 gm PO DAILY PRN (Reason: Abdominal Discomfort) cyclobenzaprine 10 mg tablet 10 mg PO TID PRN duloxetine [Cymbalta] 30 mg capsule,delayed release(DR/EC) 30 mg PO DAILY Qty: 90 0RF albuterol sulfate 90 mcg/actuation HFA aerosol inhaler 1 inh inhalation QID PRN Rx Instructions: 1-2 puffs every 4 to 6 hours as needed hydroxyzine HCl 50 mg tablet 50 mg PO QID PRN (Reason: insomnia/anxiety) Qty: 120 2RF prednisone 20 mg tablet 20 mg PO DAILY Qty: 5 0RF Rx Instructions: take with food. gabapentin 100 mg capsule 100 mg PO TID Qty: 60 11RF tizanidine 4 mg capsule See Rx Instructions .ROUTE .COMPLEX Qty: 60 11RF Dose Instruction: TAKE 1 CAPSULE BY MOUTH EVERY 12 HOURS NEEDED FOR MUSCLE SPASM Rx Instructions: TAKE 1 CAPSULE BY MOUTH EVERY 12 HOURS NEEDED FOR MUSCLE SPASM pantoprazole 40 mg tablet,delayed release (DR/EC) See Rx Instructions .ROUTE .COMPLEX Qty: 90 3RF Dose Instruction: Take 1 tablet by mouth once daily Rx Instructions: Take 1 tablet by mouth once daily Discharge Orders: Discharge ED (Routine); Ordered 05/08/24 Ordered By: Melody Brantley Referrals: Rj Sharma MD [Primary Care Provider] - Patient Instructions: Rabies Vaccine (By injection), Rabies Immune Globulin (By injection), Animal Bite (ED) Activity Restrictions/Additional Instructions: Keep wound clean as you have been doing. Antibiotics and start these. You have been given the rabies immunoglobulin as well as the rabies vaccine. The vaccine will need to be repeated on days 3, 7, and 14. You should have been provided a schedule for this prior to discharge. Coding Level of Care Code ED Scraper Loader Operator for Fredi French
[2024-05-08] MEDS: rabies IG 300 unit/mL SDV 1 mL 1500 UNIT IM (15:47)
[2024-05-08] MEDS: rabies vaccine 2.5 unit SDV IM (15:47)
[2024-05-08 16:24] VITALS: BP 110/66; PULSE 74; RESP 14; TEMP 36.9; O2SAT 98
== END 2024-05-08 16:25 | disposition home or self-care (01) ==
PROVIDERS: Emergency Provider Physician Assistant; PCP Family Medicine
DX: S71.151A Open bite, right thigh, initial encounter (principal); W54.0XXA Bitten by dog, initial encounter; Z23 Encounter for immunization; Z20.3 Contact with and (suspected) exposure to rabies; Z29.14 Encounter for prophylactic rabies immune globulin
CPT/HCPCS: 90375; 90471; 90675; 99283

== ENCOUNTER 2024-05-11 07:18 | Emergency (ER) | payer OTHER, SELFPAY ==
[2024-05-11 07:27] VITALS: BP 114/67; PULSE 74; TEMP 36.7; O2SAT 100; BMI 29.2
--- NOTE | 2024-05-11 07:32 | ED_ITS ---
HPI - General Adult General: Stated complaint: Rabies shot Time Seen by Provider: 05/11/24 07:28 Source: patient Mode of arrival: ambulatory History of Present Illness: 39-year-old female presents emergency ro om for second rabies vaccination. She was bitten initially on 05/08 received immunoglobulin and her first vaccination. [facility] ED PFSH: Medical History Allergic rhinitis due to allergen PVC (premature ventricular contraction) Chronic steroid use Anxiety and depression No pertinent past medical history neghx: htn,dm,thyroid,dvt/pe PCP: Dr. Sharma Psychiatric care Chronic constipation Urge incontinence (~2017) mild symptoms GERD (gastroesophageal reflux disease) Migraine with aura Surgical History H/O discectomy (~2021) C4-5-- performed by Nimesh at [facility] H/O esophagogastroduodenoscopy (09/04/21) Status post colonoscopy (09/04/21) H/O section 1--10/04/2009 2--05/25/2017 History of cholecystectomy (~03/01/19) History of tonsillectomy H/O breast biopsy 1--12/2006 -benign 2--2009- benign H/O laminectomy (~06/2019) C5 C6 with fusion Family History Father Diabetes Hypertension Family/Other Diabetes Paternal uncle Grandmother Diabetes Paternal grandmother Maternal grandmother Family history of thyroid problem Maternal grandmother Heart disease Maternal and paternal Hypertension Maternal and paternal Grandfather Diabetes Paternal grandfather Maternal grandfather Hyperlipidemia Maternal grandmother Stroke Maternal grandfather Heart disease Paternal Hypertension Paternal Denies family history of Ovarian cancer Breast cancer Uterine cancer Physical Exam Narrative: EXAM NARRATIVE: Awake alert oriented no distress MDM - General Adult Medical Decision Making Second rabies vaccination given. Encouraged follow-up outpatient for the remainder of her series No radiology studies performed this visit Discharge Plan Discharge Patient Disposition: Home Clinical Impression: Need for post exposure prophylaxis for rabies Condition: Stable Prescriptions: No Action acetaminophen [Tylenol] 325 mg capsule 325 mg PO QID PRN (Reason: Pain) Zyrtec 10 mg capsule 10 mg PO DAILY Mirena 20 mcg/24 hours (5 yrs) 52 mg intrauterine device 1 insert INTRAUTERI DIRECTED polyethylene glycol 3350 [Miralax] 17 gram/dose powder 17 gm PO DAILY PRN (Reason: Abdominal Discomfort) cyclobenzaprine 10 mg tablet 10 mg PO TID PRN duloxetine [Cymbalta] 30 mg capsule,delayed release(DR/EC) 30 mg PO DAILY Qty: 90 0RF albuterol sulfate 90 mcg/actuation HFA aerosol inhaler 1 inh inhalation QID PRN Rx Instructions: 1-2 puffs every 4 to 6 hours as needed hydroxyzine HCl 50 mg tablet 50 mg PO QID PRN (Reason: insomnia/anxiety) Qty: 120 2RF prednisone 20 mg tablet 20 mg PO DAILY Qty: 5 0RF Rx Instructions: take with food. gabapentin 100 mg capsule 100 mg PO TID Qty: 60 11RF tizanidine 4 mg capsule See Rx Instructions .ROUTE .COMPLEX Qty: 60 11RF Dose Instruction: TAKE 1 CAPSULE BY MOUTH EVERY 12 HOURS NEEDED FOR MUSCLE SPASM Rx Instructions: TAKE 1 CAPSULE BY MOUTH EVERY 12 HOURS NEEDED FOR MUSCLE SPASM pantoprazole 40 mg tablet,delayed release (DR/EC) See Rx Instructions .ROUTE .COMPLEX Qty: 90 3RF Dose Instruction: Take 1 tablet by mouth once daily Rx Instructions: Take 1 tablet by mouth once daily amoxicillin-pot clavulanate 875-125 mg tablet 1 tab PO BID Qty: 14 0RF Discharge Orders: Discharge ED (Routine); Ordered 05/11/24 Ordered By: Clay Garcia Referrals: Rj Sharma MD [Primary Care Provider] - Patient Instructions: Opioid Safety, Pain Management Coding Level of Care Code ED Director Of Instruction for Fredi French
[2024-05-11] MEDS: rabies vaccine 2.5 unit SDV IM (07:42)
[2024-05-11 07:45] VITALS: PULSE 69; O2SAT 100
== END 2024-05-11 07:47 | disposition home or self-care (01) ==
PROVIDERS: Emergency Provider Family Medicine; PCP Family Medicine
DX: Z29.14 Encounter for prophylactic rabies immune globulin (principal)
CPT/HCPCS: 90471; 90675; 99283

== ENCOUNTER 2024-05-23 08:15 | Oncology outpatient (recurring) (ONCR) | payer OTHER, SELFPAY ==
[2024-05-16 08:17] VITALS: BP 112/76; PULSE 62; RESP 16; TEMP 36.3; O2SAT 100
[2024-05-16] MEDS: rabies vaccine 2.5 unit SDV IM (08:24)
[2024-05-23] MEDS: rabies vaccine 2.5 unit SDV IM (08:16)
[2024-05-23 08:21] VITALS: BP 109/74; PULSE 77; RESP 16; TEMP 36.6; O2SAT 98
== END 2024-06-07 23:59 | disposition home or self-care (01) ==
PROVIDERS: PCP Family Medicine; Visit Provider Physician Assistant
DX: Z20.3 Contact with and (suspected) exposure to rabies (principal); Z23 Encounter for immunization; S71.151A Open bite, right thigh, initial encounter; W54.0XXA Bitten by dog, initial encounter; Z53.9 Procedure and treatment not carried out, unspecified reason
CPT/HCPCS: 90471; 90675

== ENCOUNTER → 2024-06-13 08:04 | Outpatient (BNVA) | payer OTHER, SELFPAY | PROVIDERS: PCP Family Medicine; Visit Provider Psychiatry & Neurology Psychiatry | DX: F41.1 Generalized anxiety disorder (principal) | CPT/HCPCS: 80061; 83036 ==

== ENCOUNTER 2024-11-12 15:55 | Emergency (ER) | payer OTHER, MEDICAID, SELFPAY ==
[2024-06-15 09:25] VITALS: BP 122/80; BMI 30.1
[2024-11-12 16:02] VITALS: BP 115/77; PULSE 83; RESP 17; TEMP 36.7; O2SAT 100; BMI 28.3
--- NOTE | 2024-11-12 16:30 | XRR_ITS ---
PROCEDURE INFORMATION: Exam: XR Chest Exam date and time: 11/12/2024 4:59 PM Age: 39 years old Clinical indication: Patient HX: SOB; Cough; Fever TECHNIQUE: Imaging protocol: Radiologic exam of the chest. Views: 1 view. COMPARISON: CR (CHEST, ) 03/25/2024 5:16 PM FINDINGS: Lungs: Unremarkable. No consolidation. Pleural spaces: Unremarkable. No pleural effusion. No pneumothorax. Heart/Mediastinum: Unremarkable. No cardiomegaly. Bones/joints: Unremarkable. XR/XR chest 1V portable [id number] IMPRESSION: No acute findings.
[2024-11-12 17:11] LABS: Basophils % 0.2 %; Eosinophils % 0.5 %; Hematocrit 41.1 % (36-47); Lymphocytes # 1.9 10^3/uL (0.8-4.8); Lymphocytes % 23.7 %; Mean Corpuscular HGB Conc 34.1 g/dL (30-55); Mean Corpuscular Hemoglobin 33.8 pg (27-33); Mean Corpuscular Volume 99.3 fl (85-98); Mean Platelet Volume 9.8 fL (7.4-10.4); Monocytes # 0.5 10^3/uL (0.2-0.9); Monocytes % 6.2 %; Neutrophils % 69.2 %; Nucleated Red Blood Cells % 0 %; Platelet Count 227 10^3/cmm (157-399); Red Blood Count 4.14 10^6/uL (3.85-5.65); Red Cell Distribution Width 11.9 % (12.1-15.1)
[2024-11-12 17:15] VITALS: BP 121/73; PULSE 73; RESP 16; O2SAT 100
[2024-11-12 17:27] LABS: Alanine Aminotransferase 15 U/L (0-33); Albumin Level 4.1 g/dL (3.5-5.2); Alkaline Phosphatase 66 U/L (35-105); Anion Gap 10.7 (5-19); Aspartate Amino Transferase 20 U/L (0-32); Blood Urea Nitrogen 7 mg/dL (6-20); Calcium 8.7 mg/dL (8.5-10.5); Carbon Dioxide 27 mmol/L (22-29); Chloride 102 mmol/L (98-107); Creatinine Clr Calc Pharmacy 109.0157; Globulin 2.6 g/dL (1.3-4.6); Glomerular Filtration Rate 94.2 mL/min (90-130); Glucose 90 mg/dL (65-115); Osmolality Calculated 280 mOsm/kg (285-295); Potassium 3.7 mmol/L (3.5-5.1); Sodium 136 mmol/L (136-145); Total Bilirubin 0.3 mg/dL (0.15-1.2); Total Protein 6.7 g/dL (6.6-8.7)
[2024-11-12 18:55] LABS: Covid PCR NEGATIVE (Negative); Influenza A NEGATIVE (Negative); Influenza B NEGATIVE (Negative); Respiratory Syncytial Virus Ce POSITIVE (Negative)
[2024-11-12] MEDS: acetaminophen 500 mg Tablet 1000 MG PO (18:56)
--- NOTE | 2024-11-12 19:02 | ED_ITS ---
HPI - URI/Sore Throat 2 General: Chief Complaint: Upper Respiratory Infection Stated Complaint: sob Time Seen by Provider: 11/12/24 16:56 History of Present Illness: Patient is a 39-year-old female that presents to the emergency department with complaints of nausea vomiting, diarrhea along with development of URI type symptoms. Onset of symptoms . By Wednesday. Nausea vomiting diarrhea had stopped. Over Wednesday she developed a sore throat, nasal congestion, nasal drainage, cough. Related Data Home Medications Medication Instructions Recorded Confirmed cetirizine 10 mg capsule (Zyrtec) 10 mg PO DAILY 03/13/20 10/19/24 levonorgestrel 21 mcg/24 hr (up to 1 insert intrauterine DIRECTED 03/13/20 10/19/24 8 years) 52 mg intrauterine device (Mirena) polyethylene glycol 3350 17 17 gm PO DAILY PRN Abdominal 03/13/20 10/19/24 gram/dose oral powder (Miralax) Discomfort albuterol sulfate 90 mcg/actuation 1 inh inhalation QID PRN 12/21/23 10/19/24 aerosol inhaler acetaminophen 325 mg capsule 1,200 mg PO TID PRN Pain 08/02/24 10/19/24 (Tylenol) Previous Rx's Medication Instructions Recorded pantoprazole 40 mg tablet,delayed See Rx Instructions .Route 06/21/24 release .COMPLEX #90 tabs cyclobenzaprine 10 mg tablet 10 mg PO TID PRN muscle spasm #60 08/30/24 tabs duloxetine 30 mg capsule,delayed 30 mg PO DAILY #30 caps 10/18/24 release (Cymbalta) hydroxyzine HCl 50 mg tablet 50 mg PO QID PRN insomnia/anxiety 10/18/24 #120 tabs trazodone 100 mg tablet 200 mg (2 x 100 mg) PO .HS PRN 10/18/24 insomnia #60 tabs prednisone 20 mg tablet 20 mg PO DAILY #5 tabs 10/19/24 Allergies Allergy/AdvReac Type Severity Reaction Status Date / Time sulfamethoxazole Allergy Intermediate ALGY-Difficulty Verified 08/24/24 07:05 [From Bactrim] Breathing trimethoprim [From Bactrim] Allergy Intermediate ADR-facial Verified 08/24/24 07:05 flushing propranolol AdvReac Intermediate swelling Verified 10/19/24 13:50 Review of Systems 2 General: Reports: 10 or more systems reviewed and unremarkable except in HPI and below PFSH ED 2 PFSH: Medical History Allergic rhinitis due to allergen PVC (premature ventricular contraction) Chronic steroid use Anxiety and depression No pertinent past medical history neghx: htn,dm,thyroid,dvt/pe PCP: Dr. Sharma Psychiatric care Chronic constipation Urge incontinence (~2017) mild symptoms GERD (gastroesophageal reflux disease) Migraine with aura Surgical History H/O discectomy (~2021) C4-5-- performed by Nimesh at [facility] H/O esophagogastroduodenoscopy (09/04/21) Status post colonoscopy (09/04/21) H/O section 1--10/04/2009 2--05/25/2017 History of cholecystectomy (~03/01/19) History of tonsillectomy H/O breast biopsy 1--12/2006 -benign 2--2009- benign H/O laminectomy (~06/2019) C5 C6 with fusion Family History Father Diabetes Hypertension Family/Other Diabetes Paternal uncle Grandmother Diabetes Paternal grandmother Maternal grandmother Family history of thyroid problem Maternal grandmother Heart disease Maternal and paternal Hypertension Maternal and paternal Grandfather Diabetes Paternal grandfather Maternal grandfather Hyperlipidemia Maternal grandmother Stroke Maternal grandfather Heart disease Paternal Hypertension Paternal Denies family history of Ovarian cancer Breast cancer Uterine cancer Social History Smoking and tobacco/nicotine status: never used tobacco/nicotine Physical Exam 2 Const: COMMON NORMALS: no acute distress, patient oriented x3 and alert G ENERAL APPEARANCE: cooperative ORIENTATION/CONSCIOUSNESS: Yes awake, Yes oriented to person, Yes oriented to place and Yes oriented to time HENMT: COMMON NORMALS: normocephalic and atraumatic HEAD & SCALP: n ormocephalic and atraumatic FACE & SINUS: normal facial exam MOUTH: Normal oral and palatal mucosa present THROAT: uvula midline, abnormal tonsil bilateral (Surgically absent) and posterior oropharynx abnormal edema and erythema Eye: COMMON NORMALS: Equal, round and reactive pupils present, EOMs intact bilaterally, conjunctivae normal and no scleral icterus GENERAL EYE: a ppearance normal, both eyes and all related structures ALIGNMENT: Yes alignment normal PERIORBITAL: periorbital findings normal CONJUNCTIVA: Yes conjunctivae normal PUPIL: Yes Equal, round and reactive pupils present Neck/C-Spine: COMMON NORMALS: full ROM GENERAL: Yes normal visual inspection Lymph: LYMPHATIC: no lymphadenopathy noted Chest: COMMONS NORMALS: normal inspection of the chest Breast/axilla inspection: Yes no chest deformity, asymmetry, normal contours, no nodules, masses, tenderness Resp: COMMON NORMALS: normal respiratory effort, No retractions, No use of accessory muscles and clear to auscultation bilaterally EFFORT & INSPECTION: Yes able to speak in complete sentences and Yes symmetric chest movement A USCULTATION: clear to auscultation bilaterally Cardio: COMMON NORMALS: regular rate, regular rhythm and Peripheral pulses 2+ throughout RATE: regular rate RHYTHM: regular rhythm PERIPHERAL PULSES: Peripheral pulses 2+ throughout GI: COMMON NORMALS: Normal to inspection, nondistended, normoactive bowel sounds present, Soft to palpation, non-tender and No hepatosplenomegaly present INSPECTION: Yes normal to inspection AUSCULTATION: Yes normoactive bowel sounds PALPATION: Yes Soft to palpation and Yes No hepatosplenomegaly present RECTAL EXAM: deferred Extremity: COMMON NORMALS: normal to inspection GENERAL: Yes normal exam except as noted Neuro: COMMON NORMALS: patient oriented x3 SENSORIUM/ORIENTATION: Yes alert, Yes oriented to person, Yes oriented to place and Yes oriented to time CRANIAL NERVES: Yes CN normal except as noted Psych: COMMON NORMALS: mental status grossly normal, Normal thought process present, cooperative, activity/motor behavior normal, denies homicidal ideation and denies suicidal ideation THOUGHT PROCESS: Normal thought process present Skin: COMMON NORMALS: no rashes or lesions noted, no wounds and turgor normal GENERAL SKIN EXAM: no rashes or lesions noted and turgor normal Course 2 Vital Signs: Vital signs: Vital Signs Temperature 98.0 F 11/12/24 16:02 Pulse Rate 73 11/12/24 17:15 Respiratory Rate 16 11/12/24 17:15 Blood Pressure 121/73 11/12/24 17:15 Pulse Oximetry 100 11/12/24 17:15 Oxygen Delivery Me thod Room Air 11/12/24 17:15 MDM - URI/Sore Throat Medical Decision Making Patient is a 39-year-old female that presents to the emergency department with complaints of URI symptoms. Onset of symptoms . Here in the emergency department we obtained a chest x-ray, CBC CMP and COVID influenza RSV swab. The chest x-ray reveals no infiltrates or opacities. The CMP reveals no leukocytosis anemias or thrombocytopenia. The chemistry panel reveals no significant electrolyte abnormality, renal dysfunction or liver dysfunction. The original COVID influenza RSV swab did not produce any results. It had to be redone which prolonged her stay here in the emergency department. Her second test showed that she was positive for RSV. Patient I reviewed RSV symptoms as well as management. At this time no further diagnostics are warranted but we are going to send her home with a few extra masks and a work release note Lab Data 11/12/24 17:06 11/12/24 17:06 Radiology Impressions Chest X-Ray 11/12/24 16:30 IMPRESSION: No acute findings. Laboratory Results WBC 8.10 10^3/uL (3.29-11.43) 11/12/24 17:06 RBC 4.14 10^6/uL (3.85-5.65) 11/12/24 17:06 Hgb 14.00 g/dL (11.27-16.99) 11/12/24 17:06 Hct 41.1 % (36-47) 11/12/24 17:06 MCV 99.3 fl (85-98) H 11/12/24 17:06 MCH 33.8 pg (27-33) H 11/12/24 17:06 MCHC 34.1 g/dL (30-55) 11/12/24 17:06 RDW 11.9 % (12.1-15.1) L 11/12/24 17:06 Plt Count 227 10^3/cmm (157-399) 11/12/24 17:06 MPV 9.8 fL (7.4-10.4) 11/12/24 17:06 Neut % (Auto) 69.2 % 11/12/24 17:06 Lymph % (Auto) 23.7 % 11/12/24 17:06 [place] % (Auto) 6.2 % 11/12/24 17:06 Eos % (Auto) 0.5 % 11/12/24 17:06 Baso % (Auto) 0.2 % 11/12/24 17:06 Neut # (Auto) 5.60 10^3/uL (1.8-7.7) 11/12/24 17:06 Lymph # (Auto) 1.9 10^3/uL (0.8-4.8) 11/12/24 17:06 [place] # (Auto) 0.5 10^3/uL (0.2-0.9) 11/12/24 17:06 Eos # (Auto) 0.0 10^3/uL (0.0-0.8) 11/12/24 17:06 Baso # (Auto) 0.0 10^3/uL (0.0-0.1) 11/12/24 17:06 Nucleated RBC % (auto) 0 % 11/12/24 17:06 Nucleated RBCs # 0.0 /100WBC 11/12/24 17:06 Sodium 136 mmol/L (136-145) 11/12/24 17:06 Potassium 3.7 mmol/L (3.5-5.1) 11/12/24 17:06 Chloride 102 mmol/L (98-107) 11/12/24 17:06 Carbon Dioxide 27 mmol/L (22-29) 11/12/24 17:06 Anion Gap 10.7 (5-19) 11/12/24 17:06 BUN 7 mg/dL (6-20) 11/12/24 17:06 Creatinine 0.7 mg/dL (0.5-0.9) 11/12/24 17:06 GFR Calculation 94.2 mL/min (90-130) 11/12/24 17:06 Glucose 90 mg/dL (65-115) 11/12/24 17:06 Calculated Osmolality 280 mOsm/kg (285-295) L 11/12/24 17:06 Calcium 8.7 mg/dL (8.5-10.5) 11/12/24 17:06 Total Bilirubin 0.3 mg/dL (0.15-1.2) 11/12/24 17:06 AST 20 U/L (0-32) 11/12/24 17:06 ALT 15 U/L (0-33) 11/12/24 17:06 Alkaline Phosphatase 66 U/L (35-105) 11/12/24 17:06 Total Protein 6.7 g/dL (6.6-8.7) 11/12/24 17:06 Albumin 4.1 g/dL (3.5-5.2) 11/12/24 17:06 Globulin 2.6 g/dL (1.3-4.6) 11/12/24 17:06 Coronavirus (PCR) Negative (Negative) 11/12/24 17:13 Influenza A (PCR) Negative (Negative) 11/12/24 17:13 Influenza Type B (PCR) Negative (Negative) 11/12/24 17:13 RSV (PCR) Positive (Negative) A 11/12/24 17:13 All radiology interpretation(s) finalized by discharge Discharge Plan Discharge Patient Disposition: Home Clinical Impression: Respiratory syncytial virus (RSV) Condition: Stable Prescriptions: No Action Zyrtec 10 mg capsule 10 mg PO DAILY Mirena 20 mcg/24 hours (5 yrs) 52 mg intrauterine device 1 insert INTRAUTERI DIRECTED polyethylene glycol 3350 [Miralax] 17 gram/dose powder 17 gm PO DAILY PRN (Reason: Abdominal Discomfort) acetaminophen [Tylenol] 325 mg capsule 1,200 mg PO TID PRN (Reason: Pain) hydroxyzine HCl 50 mg tablet 50 mg PO QID PRN (Reason: insomnia/anxiety) Qty: 120 2RF duloxetine [Cymbalta] 30 mg capsule,delayed release(DR/EC) 30 mg PO DAILY Qty: 30 2RF trazodone 100 mg tablet 200 mg PO .HS PRN (Reason: insomnia) Qty: 60 2RF cyclobenzaprine 10 mg tablet 10 mg PO TID PRN (Reason: muscle spasm) Qty: 60 5RF albuterol sulfate 90 mcg/actuation HFA aerosol inhaler 1 inh inhalation QID PRN Rx Instructions: 1-2 puffs every 4 to 6 hours as needed prednisone 20 mg tablet 20 mg PO DAILY Qty: 5 0RF Rx Instructions: take with food. pantoprazole 40 mg tablet,delayed release (DR/EC) See Rx Instructions .ROUTE .COMPLEX Qty: 90 3RF Dose Instruction: TAKE 1 TABLET BY MOUTH EVERY DAY Rx Instructions: TAKE 1 TABLET BY MOUTH EVERY DAY Discharge Orders: Discharge ED (Routine); Ordered 11/12/24 Ordered By: Bran Watkins Referrals: Rj Sharma MD [Primary Care Provider] - Discharge Diet: Advance as tolerated Discharge Activity: Resume usual activity Patient Instructions: Pain Management, RSV (Respiratory Syncytial Virus) Infection (ED), Respiratory Syncytial Virus (RSV) Activity Restrictions/Additional Instructions: Please wear a mask while you are in public or around other people. Please monitor your symptoms closely. If you feel you are getting worse or you are not getting better, please follow- up with your primary care doctor or return to the emergency department for further evaluation Coding Level of Care Code ED Tube Blower for Fredi French
[2024-11-12 19:14] VITALS: BP 121/73; PULSE 73; O2SAT 100
== END 2024-11-12 19:16 | disposition home or self-care (01) ==
PROVIDERS: Emergency Provider Nurse Practitioner; PCP Family Medicine
DX: J06.9 Acute upper respiratory infection, unspecified (principal); B97.4 Respiratory syncytial virus as the cause of diseases classified elsewhere
CPT/HCPCS: 36415; 71045; 80053; 85025; 87637; 99284

== ENCOUNTER → 2024-12-26 09:24 | Outpatient (BNVA) | payer OTHER, BC, MEDICAID, SELFPAY ==
[2024-06-15 09:25] VITALS: BP 122/80; BMI 30.1
== END ==
PROVIDERS: PCP Family Medicine; Visit Provider Nurse Practitioner Women's Health
DX: Z00.00 Encounter for general adult medical examination without abnormal findings (principal); R00.2 Palpitations; R53.83 Other fatigue
CPT/HCPCS: 82306; 82607; 82728; 82746; 83540; 87624

== ENCOUNTER 2025-01-02 18:30 | Emergency (ER) | payer OTHER, BC, SELFPAY ==
[2024-06-15 09:25] VITALS: BP 122/80; BMI 30.1
--- NOTE | 2025-01-02 18:33 | XRR_ITS ---
PROCEDURE INFORMATION: Exam: XR Chest Exam date and time: 01/02/2025 8:23 PM Age: 39 years old Clinical indication: Pain; Chest pressure; Additional info: Cp TECHNIQUE: Imaging protocol: Radiologic exam of the chest. Views: 1 view. COMPARISON: CR XR chest 1V portable [id number] 11/12/2024 4:59 PM FINDINGS: Lungs: Unremarkable. No consolidation. Pleural spaces: Unremarkable. No pleural effusion. No pneumothorax. Heart/Mediastinum: Unremarkable. No cardiomegaly. Bones/joints: Unremarkable. XR/XR chest 1V portable [id number] IMPRESSION: No acute findings.
[2025-01-02 18:37] VITALS: BP 130/80; PULSE 82; RESP 16; TEMP 36.6; O2SAT 100; BMI 28.3
--- NOTE | 2025-01-02 18:40 | ECG_ITS ---
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
[2025-01-02 19:35] LABS: Basophils % 0.4 %; Eosinophils # 0.1 10^3/uL (0.0-0.8); Eosinophils % 0.6 %; Hematocrit 37.5 % (36-47); Lymphocytes # 3.3 10^3/uL (0.8-4.8); Lymphocytes % 35.5 %; Mean Corpuscular HGB Conc 35.2 g/dL (30-55); Mean Corpuscular Volume 96.6 fl (85-98); Monocytes # 0.3 10^3/uL (0.2-0.9); Monocytes % 3.5 %; Neutrophils # 5.63 10^3/uL (1.8-7.7); Neutrophils % 59.8 %; Nucleated Red Blood Cells % 0 %; Platelet Count 307 10^3/cmm (157-399); Red Blood Count 3.88 10^6/uL (3.85-5.65); Red Cell Distribution Width 11.9 % (12.1-15.1); White Blood Count 9.42 10^3/uL (3.29-11.43)
[2025-01-02 19:47] LABS: HCG, Serum Qual Negative (Negative)
[2025-01-02 19:49] LABS: Alanine Aminotransferase 9 U/L (0-33); Albumin Level 4.7 g/dL (3.5-5.2); Alkaline Phosphatase 70 U/L (35-105); Anion Gap 15.7 (5-19); Aspartate Amino Transferase 16 U/L (0-32); Blood Urea Nitrogen 7 mg/dL (6-20); Calcium 9.3 mg/dL (8.5-10.5); Carbon Dioxide 22 mmol/L (22-29); Chloride 104 mmol/L (98-107); Creatinine Clr Calc Pharmacy 91.9123; Globulin 2.4 g/dL (1.3-4.6); Glomerular Filtration Rate 80.7 mL/min (90-130); Glucose 110 mg/dL (65-115); Lipase 19 U/L (13-60); Osmolality Calculated 285 mOsm/kg (285-295); Potassium 3.7 mmol/L (3.5-5.1); Sodium 138 mmol/L (136-145); Total Bilirubin 0.3 mg/dL (0.15-1.2); Total Protein 7.1 g/dL (6.6-8.7)
[2025-01-02 19:52] LABS: Troponin(5th) Baseline < 6 ng/L (0-10)
--- NOTE | 2025-01-02 20:33 | ECG_ITS ---
[facility] Test Date: 2025-01-02 Pat Name: Martha Vargas Department: Room: Gender: Female [employer] Back Feeder: : 1985 Requested By: Ceci Núñez Order Number: [id number] Reading MD: CHHAYA BLEDSOE Measurements Intervals [place] Rate: 58 P: 47 [place]: 139 QRS: 8 QRSD: 77 T: 38 QT: 419 QTc: 413 Interpretive Statements SINUS BRADYCARDIA Compared to ECG 01/02/2025 18:40:35 Sinus rhythm no longer present Electronically Signed On 01-02-2025 23:45:03 DINING ROOM ATTENDANT CAFETERIA by CHHAYA BLEDSOE [id number]
[2025-01-02 21:08] VITALS: BP 136/83; PULSE 60; RESP 16; O2SAT 100
[2025-01-02 21:27] LABS: D Dimer 0.33 ug/mLFEU (0-0.59)
--- NOTE | 2025-01-02 21:27 | ED_ITS ---
HPI - Chest Pain 2 General: Chief Complaint: Chest Pain Stated Complaint: Chest Pains\Weakness Left Side Time Seen by Provider: 01/02/25 20:19 Source: patient Mode of arrival: ambulatory Limitations: no limitations History of Present Illness: Patient is a 39-year-old female with past medical history of PVC, and psychiatric care who presents to the emergency department complaining of sudden onset left chest pain radiating down her left arm. She states that pain began suddenly about 3 hours before coming in, it is still present at this time. States that she has echocardiogram scheduled for the morning. She notes that she had difficulty walking when the pain started, which is accompanied by a multitude of other symptoms. States that she had shortness of breath, headache, lightheadedness, dizziness, abdominal pain, peripheral edema. Denies any personal cardiac history in terms of heart attacks, strokes, or arrhythmias. Notes that the pain feels like a dull ache. Vitals have been within normal limits. States that the pain is worsened with movement, improved with rest. No temporal pattern reported. MD complaint: chest pain Onset (ago): hour(s) Timing of current episode: constant Prior episodes: Yes Onset: during rest Pain location: left chest Pain radiation: left arm Severity: moderate Quality: aching and dull Relieving factors: rest Exacerbating factors: exertion Associated symptoms: Reports abdominal pain and dyspnea; Deny fever(s), nausea, palpitations or vomiting Risk Factors: Coronary artery disease risk factors: none Thoracic aortic dissection risk factors: none Related Data Home Medications ?Medication ?Instructions ?Recorded ?Confirmed cetirizine 10 mg capsule (Zyrtec) 10 mg PO DAILY 03/1312/28/24 levonorgestrel 21 mcg/24 hr (up to 1 insert intrauteri ne DIRECTED 03/13/20 12/28/24 8 years) 52 mg intrauterine device (Mirena) polyethylene glycol 3350 17 17 gm PO DAILY PRN Abdomin al 03/13/20 12/28/24 gram/dose oral powder (Miralax) Discomfort acetaminophen 650 mg 1,300 mg PO Q8H 12/28/24 tablet,extended release (Tylenol Arthritis Pain) Previous Rx's ?Medication ?Instructions ?Recorded pantoprazole 40 mg tablet,delayed See Rx Instructions .Route 06/21/24 release .COMPLEX #90 tabs cyclobenzaprine 10 mg tablet 10 mg PO TID PRN muscle s pasm #60 08/30/24 tabs duloxetine 30 mg capsule,delayed 30 mg PO DAILY #30 ca ps 10/18/24 release (Cymbalta) hydroxyzine HCl 50 mg tablet 50 mg PO QID PRN insomnia /anxiety 10/18/24 #120 tabs trazodone 100 mg tablet 200 mg (2 x 100 mg) PO .HS P RN 10/18/24 insomnia #60 tabs baclofen 5 mg tablet 5 mg PO TID #90 tabs 5 Allergies Allergy/AdvReac Type Severity Reaction Status Date / Time sulfamethoxazole (From Allergy Intermediate ALGY-Difficulty Verified 12/28/24 07:54 Bactrim) Breathing trimethoprim (From Bactrim) Allergy Intermediate ADR-facial Verified 12/28/24 07:54 flushing propranolol AdvReac Intermediate swelling Verified 12/28/24 07:54 Review of Systems 2 General: Reports: 10 or more systems reviewed and unremarkable except in HPI and below Const: Denies: fever(s), chills or fatigue Eyes: Denies: change in vision ENMT: Denies: throat pain, ear or mastoid pain or nasal discharge Card: Reports: chest pain, swelling of feet/ankles and lightheadedness; Denies: palpitations Resp: Reports: dyspnea; Denies: productive cough or wheezing GI: Reports: abdominal pain; Denies: nausea, vomiting, diarrhea or constipation : Denies: flank pain, difficulty voiding, dysuria or urinary frequency Musc: Denies: neck pain, back pain or joint pain Skin/Breast: Denies: rash Neuro: Reports: headache(s) and dizziness; Denies: numbness in extremities or weakness in extremities PFSH ED 2 PFSH: Medical History Allergic rhinitis due to allergen PVC (premature ventricular contraction) Chronic steroid use Anxiety and depression No pertinent past medical history neghx: htn,dm,thyroid,dvt/pe PCP: Dr. Sharma Psychiatric care Chronic constipation Urge incontinence (~2017) mild symptoms GERD (gastroesophageal reflux disease) Migraine with aura Surgical History H/O discectomy (~2021) C4-5-- performed by Nimesh at [facility] H/O esophagogastroduodenoscopy (09/04/21) Status post colonoscopy (09/04/21) H/O section 1--10/04/2009 2--05/25/2017 History of cholecystectomy (~03/01/19) History of tonsillectomy H/O breast biopsy 1--12/2006 -benign 2--2009- benign H/O laminectomy (~06/2019) C5 C6 with fusion Family History Father Diabetes Hypertension Family/Other Diabetes Paternal uncle Grandmother Diabetes Paternal grandmother Maternal grandmother Family history of thyroid problem Maternal grandmother Heart disease Maternal and paternal Hypertension Maternal and paternal Grandfather Diabetes Paternal grandfather Maternal grandfather Hyperlipidemia Maternal grandmother Stroke Maternal grandfather Heart disease Paternal Hypertension Paternal Denies family history of Ovarian cancer Breast cancer Uterine cancer Social History Smoking and tobacco/nicotine status: never used tobacco/nicotine Physical Exam 2 Const: COMMON NORMALS: no acute distress, patient oriented x3 and no limitations GENERAL APPEARANCE: cooperative, comfortable, well developed and anxious ORIENTATION/CONSCIOUSNESS: Yes awake, Yes oriented to person, Yes oriented to place and Yes oriented to time HENMT: COMMON NORMALS: normocephalic, atraumatic and hearing grossly normal bilaterally HEAD & SCALP: normocephalic and atraumatic Eye: COMMON NORMALS: Equal, round and reactive pupils present, EOMs intact bilaterally and conjunctivae normal CONJUNCTIVA: Yes conjunctivae normal P UPIL: Yes Equal, round and reactive pupils present Neck/C-Spine: COMMON NORMALS: full ROM, supple and no JVD Resp: COMMON NORMALS: normal respiratory effort, No retractions, No use of accessory muscles and clear to auscultation bilaterally AUSCULTATION: clear to auscultation bilaterally Cardio: COMMON NORMALS: no JVD, regular rate, regular rhythm, No clicks present (Cardio), No murmurs present (Cardio) and No rub (Cardio) RATE: r egular rate RHYTHM: regular rhythm GI: COMMON NORMALS: Normal to inspection, nondistended, normoactive bowel sounds present, Soft to palpation and non-tender AUSCULTATION: Yes normoactive bowel sounds PALPATION: Yes Soft to palpation RECTAL EXAM: d eferred Extremity: COMMON NORMALS: normal to inspection, full ROM, capillary refill normal and no pedal edema Neuro: COMMON NORMALS: patient oriented x3, moves all extremities, no focal motor deficits and no sensory deficits noted SENSORIUM/ORIENTATION: Yes oriented to person, Yes oriented to place and Yes oriented to time Skin: COMMON NORMALS: no rashes or lesions noted GENERAL SKIN EXAM: no rashes or lesions noted Course 2 Vital Signs: Vital signs: Vital Signs Temperature 97.8 F 01/02/25 18:37 Pulse Rate 60 01/02/25 21:08 Respiratory Rate 16 01/02/25 21:08 Blood Pressure 136/83 01/02/25 21:08 Pulse Oximetry 100 01/02/25 21:08 Oxygen Delivery Me thod Room Air 01/02/25 21:08 MDM - Chest Pain Medical Decision Making Patient presented with multiple complaints. Had reported some chest pain radiating down the left arm associate with shortness of breath. Physical examination was unremarkable. She had no concerning medical history in terms of cardiac abnormalities or family cardiac abnormalities. Her baseline troponin was negative, as well as her 2-hour troponin. EKG reviewed with physician showing no STEMI or other arrhythmias. Her vitals have been within normal limits throughout her ED stay. Lab work was negative including a negative D- dimer. She has outpatient cardiac workup scheduled for tomorrow, which is an echocardiogram, and I encouraged her to keep this appointment and to return if her pain comes back in the meantime. She had noted symptom-free prior to discharge. Pain etiology could be musculoskeletal, anxiety, or GERD amongst other etiologies. I do not suspect ACS at this time. Heart score of 0. Discussed return precautions to which she verbalized understanding. Will be discharged home at this time. Lab Data 01/02/25 19:20 01/02/25 19:20 Radiology Impressions Chest X-Ray 01/02/25 18:33 IMPRESSION: No acute findings. Laboratory Results WBC 9.42 10^3/uL (3.29-11.43) 01/02/25 19:20 RBC 3.88 10^6/uL (3.85-5.65) 01/02/25 19:20 Hgb 13.20 g/dL (11.27-16.99) 01/02/25 19:20 Hct 37.5 % (36-47) 01/02/25 19:20 MCV 96.6 fl (85-98) 01/02/25 19:20 MCH 34.0 pg (27-33) H 01/02/25 19:20 MCHC 35.2 g/dL (30-55) 01/02/25 19:20 RDW 11.9 % (12.1-15.1) L 01/02/25 19:20 Plt Count 307 10^3/cmm (157-399) 01/02/25 19:20 MPV 10.0 fL (7.4-10.4) 01/02/25 19:20 Neut % (Auto) 59.8 % 01/02/25 19:20 Lymph % (Auto) 35.5 % 01/02/25 19:20 [place] % (Auto) 3.5 % 01/02/25 19:20 Eos % (Auto) 0.6 % 01/02/25 19:20 Baso % (Auto) 0.4 % 01/02/25 19:20 Neut # (Auto) 5.63 10^3/uL (1.8-7.7) 01/02/25 19:20 Lymph # (Auto) 3.3 10^3/uL (0.8-4.8) 01/02/25 19:20 [place] # (Auto) 0.3 10^3/uL (0.2-0.9) 01/02/25 19:20 Eos # (Auto) 0.1 10^3/uL (0.0-0.8) 01/02/25 19:20 Baso # (Auto) 0.0 10^3/uL (0.0-0.1) 01/02/25 19:20 Nucleated RBC % (auto) 0 % 01/02/25 19: Nucleated RBCs # 0.0 /100WBC 01/02/25 19:20 D-Dimer 0.33 ug/mLFEU (0-0.59) 01/02/25 19:20 Sodium 138 mmol/L (136-145) 01/02/25 19:20 Potassium 3.7 mmol/L (3.5-5.1) 01/02/25 19:20 Chloride 104 mmol/L (98-107) 01/02/25 19:20 Carbon Dioxide 22 mmol/L (22-29) 01/02/25 19:20 Anion Gap 15.7 (5-19) 01/02/25 19:20 BUN 7 mg/dL (6-20) 01/02/25 19:20 Creatinine 0.8 mg/dL (0.5-0.9) 01/02/25 19:20 GFR Calculation 80.7 mL/min (90-130) L 01/02/25 19:20 Glucose 110 mg/dL (65-115) 01/02/25 19:20 Calculated Osmolality 285 mOsm/kg (285-295) 01/02/25 19:20 Calcium 9.3 mg/dL (8.5-10.5) 01/02/25 19:20 Total Bilirubin 0.3 mg/dL (0.15-1.2) 01/02/25 19:20 AST 16 U/L (0-32) 01/02/25 19:20 ALT 9 U/L (0-33) 01/02/25 19:20 Alkaline Phosphatase 70 U/L (35-105) 01/02/25 19:20 Troponin T Baseline < 6 ng/L (0-10) 01/02/25 19:20 Troponin T 120 Minute 6.00 ng/L (0-10) 01/02/25 21:12 Delta Troponin T 0.21582 ABS# (0-10) 01/02/25 21:12 Total Protein 7.1 g/dL (6.6-8.7) 01/02/25 19:20 Albumin 4.7 g/dL (3.5-5.2) 01/02/25 19:20 Globulin 2.4 g/dL (1.3-4.6) 01/02/25 19:20 Lipase 19 U/L (13-60) 01/02/25 19:20 HCG, Qual Negative (Negative) 01/02/25 19:20 All radiology interpretation(s) finalized by discharge Discharge Plan Discharge Patient Disposition: Home Clinical Impression: Chest pain Qualifiers: Chest pain type: unspecified Qualified Code(s): R07.9 - Chest pain, unspecified Condition: Stable Prescriptions: No Action Zyrtec 10 mg capsule 10 mg PO DAILY Mirena 20 mcg/24 hours (5 yrs) 52 mg intrauterine device 1 insert INTRAUTERI DIRECTED polyethylene glycol 3350 [Miralax] 17 gram/dose powder 17 gm PO DAILY PRN (Reason: Abdominal Discomfort) hydroxyzine HCl 50 mg tablet 50 mg PO QID PRN (Reason: insomnia/anxiety) Qty: 120 2RF duloxetine [Cymbalta] 30 mg capsule,delayed release(DR/EC) 30 mg PO DAILY Qty: 30 2RF trazodone 100 mg tablet 200 mg PO .HS PRN (Reason: insomnia) Qty: 60 2RF cyclobenzaprine 10 mg tablet 10 mg PO TID PRN (Reason: muscle spasm) Qty: 60 5RF acetaminophen [Tylenol Arthritis Pain] 650 mg tablet extended release 1,300 mg PO Q8H baclofen 5 mg tablet 5 mg PO TID Qty: 90 4RF pantoprazole 40 mg tablet,delayed release (DR/EC) See Rx Instructions .ROUTE .COMPLEX Qty: 90 3RF Dose Instruction: TAKE 1 TABLET BY MOUTH EVERY DAY Rx Instructions: TAKE 1 TABLET BY MOUTH EVERY DAY Discharge Orders: Discharge ED (Routine); Ordered 01/02/25 Ordered By: Cholo Farmer Referrals: Rj Sharma MD [Primary Care Provider] - Patient Instructions: Chest Pain (ED) Activity Restrictions/Additional Instructions: Continue follow-up with primary care tomorrow for echocardiogram and further cardiac outpatient workup. Continue taking home medications. Please return with any new or worsening. Print Language: Lao Coding Level of Care Code ED Barrel Header for Fredi French
[2025-01-02 21:33] LABS: Troponin 5 2HR Delta 0.00001 ABS# (0-10)
[2025-01-02 21:45] VITALS: BP 136/83; PULSE 88; O2SAT 100
== END 2025-01-02 21:46 | disposition home or self-care (01) ==
PROVIDERS: Emergency Medicine; Emergency Provider Physician Assistant; PCP Family Medicine
DX: R07.9 Chest pain, unspecified (principal)
CPT/HCPCS: 71045; 80053; 83690; 84484; 84703; 85025; 85378; 93005; 99285

== ENCOUNTER 2025-01-03 06:04 | Outpatient (CLI) | payer OTHER, BC, SELFPAY ==
[2024-06-15 09:25] VITALS: BP 122/80; BMI 30.1
--- NOTE | 2025-01-03 06:13 | USCV_ITS ---
Martha Vargas Age: 39 Gender: F : 1985 Exam Date: 01/03/2025 06:23 Ordering Phys: Robbin Mo MD Technologist: Exam Location: [facility] [place] Indication: sob BP: 110 / 70 HR: 69 Rhythm: Sinus Technical Quality: Adequate MEASUREMENTS (Male / Female) Normal Values 2D ECHO LV Diastolic Diameter PLAX 4.8 cm 4.2 - 5.9 / 3.9 - 5.3 cm IVS Diastolic Thickness 0.9 cm 0.6 - 1.0 / 0.6 - 0.9 cm IVS Systolic Thickness 1.3 cm LVPW Diastolic Thickness 0.9 cm 0.6 - 1.0 / 0.6 - 0.9 cm LVPW Systolic Thickness 1.5 cm LVOT Diameter 2.0 cm LV Ejection Fraction 2D Teich 70.6 % LV Ejection Fraction MOD 4C 62.0 % LV Ejection Fraction MOD 2C 71.4 % LV Ejection Fraction 2C AL 71.4 % LA Diameter 2.9 cm RA Systolic Volume 4C AL 31.5 ml RA Systolic Volume 4C MOD 31.0 ml Aorta at Sinotubular Diameter 2.8 cm IVC Diameter 1.7 cm M-MODE LA Ao Ratio MM 1.3 AV Cusp Separation MM 2.1 cm DOPPLER AV Peak Velocity 262.3 cm/s LVOT Peak Velocity 70.0 cm/s AV Area Cont Eq vti 2.0 cm squared AV Area Cont Eq pk 0.8 cm squared MV Peak Velocity 104.0 cm/s MV Area PHT 5.0 cm squared Mitral E to A Ratio 1.7 TV Peak Velocity 163.7 cm/s TR Peak Velocity 244.0 cm/s TR Peak Gradient 23.8 mmHg PV Peak Velocity 101.0 cm/s FINDINGS Left Ventricle Normal left ventricular size, systolic function and wall thickness, with no regional wall motion abnormalities. Left ventricular ejection fraction is estimated at 60 %. Grade II/IV diastolic dysfunction, moderately elevated filling pressures. Right Ventricle The right ventricle is normal in size and function. Right Atrium The right atrium is normal in size. Left Atrium The left atrium is normal in size. Mitral Valve Mildly thickened mitral valve. No mitral valve stenosis. Mild mitral valve regurgitation. Aortic Valve Mild aortic valve calcification. No aortic valve stenosis. Mild- to-moderate aortic valve regurgitation. Tricuspid Valve Structurally normal tricuspid valve without significant stenosis or regurgitation. Pulmonary artery systolic pressure is normal. Pulmonic Valve Mild pulmonary valve regurgitation. Pericardium Normal pericardium without effusion. Aorta Normal ascending aorta dimension. IVC The inferior vena cava appears normal. CONCLUSIONS Normal left ventricular size, systolic function and wall thickness, with no regional wall motion abnormalities. Left ventricular ejection fraction is estimated at 60 %. Grade II/IV diastolic dysfunction, moderately elevated filling pressures. Mild aortic valve calcification. No aortic valve stenosis. Mild- to-moderate aortic valve regurgitation. Mildly thickened mitral valve. No mitral valve stenosis. Mild mitral valve regurgitation. Mild pulmonary valve regurgitation. There is no pericardial effusion. Right atrial pressure is 10 mmHg Jarrell Garzon MD (Electronically Signed) Final Date: 22 January 2025 18:58 S
== END 2025-01-03 06:05 | disposition home or self-care (01) ==
PROVIDERS: PCP Family Medicine; Visit Provider Family Medicine
DX: R06.09 Other forms of dyspnea (principal); R94.2 Abnormal results of pulmonary function studies; R93.1 Abnormal findings on diagnostic imaging of heart and coronary circulation; I34.0 Nonrheumatic mitral (valve) insufficiency; I35.8 Other nonrheumatic aortic valve disorders; I35.1 Nonrheumatic aortic (valve) insufficiency; I37.1 Nonrheumatic pulmonary valve insufficiency
CPT/HCPCS: 93306; 94010; 94726; 94729

== ENCOUNTER 2025-01-12 14:47 | Outpatient (CLI) | payer OTHER, BC, SELFPAY ==
[2024-06-15 09:25] VITALS: BP 122/80; BMI 30.1
--- NOTE | 2025-01-12 15:15 | MR_ITS ---
WS: [id number] MRI THORACIC SPINE WITHOUT CONTRAST TECHNIQUE: Sagittal T1, T2 and STIR imaging. Axial T2 imaging. Noncontrast imaging obtained. CLINICAL INFORMATION: chronic back pain COMPARISON: None. FINDINGS: Prior cervical fusion. Incidental hemangiomas T10, T11 and L1. Tiny central protrusions at T5-T7. No significant central canal stenosis. Cord signal is normal. Mild facet arthropathy lower thoracic spine. Mild LEFT T9-T10 bony foraminal narrowing. Small RIGHT hepatic cyst or hemangioma measuring 11 mm. MR/MR thoracic spin wo con* [id number] IMPRESSION: 1. Mild thoracic curve. Minimal thoracic kyphosis. No acute compression fractu res. 2. Cord signal is normal. 3. Few tiny central protrusions at T5-T7 without significant spinal canal or f oraminal narrowing. 4. Mild LEFT bony foraminal narrowing at T9-T10. No high-grade foraminal narro wing. 5. Mild facet arthropathy lower thoracic spine. 6. No other acute findings.
--- NOTE | 2025-01-12 16:00 | MR_ITS ---
WS: [id number] MRI HEAD WITH CONTRAST TECHNIQUE: Sagittal T1, T2 axial, T2 axial FLAIR, axial susceptibility weighted imaging, axial diffusion weighted images, and coronal T2 images were obtained. Pre and post-T1 axial and post T1 coronal images. ADC and FSPGR images. CLINICAL INFORMATION: G43.909 - Migraine, unspecified, not intractable, without... COMPARISON: CT head 03/25/2024 FINDINGS: No evidence of restricted diffusion to suggest acute ischemia. Ventricular system and basal cisterns are patent. No suspicious intracranial signal abnormalities. Normal cancino-white differentiation. Mild cerebellar tonsillar ectopia. Normal fourth ventricle. Normal vascular flow voids at the skull base. No extra-axial fluid collections. No evidence of mass or mass effect. Paranasal sinuses are well aerated. Normal posterior nasopharynx. Normal mastoid air cells. No hemosiderin on the susceptibly weighted images. Normal optic chiasm and pituitary infundibulum. No abnormal gadolinium enhancement. Normal dural venous sinuses. No other suspicious findings. MR/MR head wo/w con [id number] IMPRESSION: 1. No evidence of restricted diffusion to suggest acute ischemia. 2. No suspicious intracranial signal abnormalities. 3. No abnormal gadolinium enhancement. 4. No hemosiderin on the susceptibility weighted images. 5. Mild cerebellar tonsillar ectopia. Normal fourth ventricle
[2025-01-12] MEDS: gadobenate dimeglumine 20 mL vial 16 ML IV (16:21)
== END 2025-01-12 14:48 | disposition home or self-care (01) ==
LOC: RAD 14:50
PROVIDERS: PCP Family Medicine; Visit Provider Family Medicine
DX: G43.909 Migraine, unspecified, not intractable, without status migrainosus (principal); M54.2 Cervicalgia; G89.29 Other chronic pain; M54.9 Dorsalgia, unspecified; R55 Syncope and collapse; R93.0 Abnormal findings on diagnostic imaging of skull and head, not elsewhere classified; M43.8X4 Other specified deforming dorsopathies, thoracic region; M48.04 Spinal stenosis, thoracic region; M47.894 Other spondylosis, thoracic region; Z98.1 Arthrodesis status; D18.09 Hemangioma of other sites; R93.2 Abnormal findings on diagnostic imaging of liver and biliary tract
CPT/HCPCS: 70553; 72146

== ENCOUNTER 2025-01-17 07:51 | Outpatient (CLI) | payer OTHER, BC, SELFPAY ==
[2024-06-15 09:25] VITALS: BP 122/80; BMI 30.1
--- NOTE | 2025-01-17 08:00 | MR_ITS ---
WS: [email or web address] MRA CAROTID ARTERIES HISTORY: G43.909 - Migraine, unspecified, not intractable, without... COMPARISON: None available. TECHNIQUE: MRA is performed with intravenous gadolinium. MIP and source images are reviewed. Right: Normal common, internal and external carotid arteries. No stenosis or plaque. Left: Normal common, internal and external carotid arteries. No stenosis or plaque. Subclavian Arteries: Normal. LEFT subclavian arteries slightly better visualized than the RIGHT. Vertebral Arteries: Dominant LEFT vertebral artery is intact. Minimally smaller RIGHT vertebral artery. No dissection. Is a focal short segment loss of signal in the vertebral arteries due to swallowing artifact most likely. MR/MR angio neck w con* [id number] IMPRESSION: No significant cervical carotid artery stenosis or plaque. Intact vertebral arteries. LEFT vertebral artery slightly dominant.
[2025-01-17] MEDS: gadobenate dimeglumine 20 mL vial 16 ML IV (08:28)
--- NOTE | 2025-01-17 08:45 | MR_ITS ---
WS: [email or web address] MRA ANGIOGRAPHY [place] HISTORY: G43.909 - Migraine, unspecified, not intractable, without... COMPARISON: None available. TECHNIQUE: 3-D MR angiography is performed of the [place]. All images are reviewed including source images. Distal vertebral and basilar arteries are intact with no significant stenosis or plaque. Posterior cerebral arteries are normal course and caliber. Posterior communicating arteries are both patent but small caliber. Intracranial portion of the internal carotid arteries are normal course and caliber. No significant atherosclerosis, stenosis or aneurysm identified. Middle and anterior cerebral arteries are both patent with no significant disease. Anterior communicating artery is also normal. MR/MR angio head wo con [id number] IMPRESSION: Normal MRA [place].
== END 2025-01-17 07:52 | disposition home or self-care (01) ==
PROVIDERS: PCP Family Medicine; Visit Provider Psychiatry & Neurology Neurology
DX: G43.909 Migraine, unspecified, not intractable, without status migrainosus (principal); R55 Syncope and collapse
CPT/HCPCS: 70544; 70548; A9577

== ENCOUNTER → 2025-03-21 12:48 | Outpatient (BNVA) | payer OTHER, SELFPAY ==
[2024-06-15 09:25] VITALS: BP 122/80; BMI 30.1
== END ==
PROVIDERS: PCP Family Medicine; Visit Provider Emergency Medicine
DX: M79.642 Pain in left hand (principal)
CPT/HCPCS: 73130

== ENCOUNTER → 2025-04-05 08:04 | Outpatient (BNVA) | payer OTHER, SELFPAY ==
[2024-06-15 09:25] VITALS: BP 122/80; BMI 30.1
== END ==
PROVIDERS: PCP Family Medicine; Visit Provider Family Medicine
DX: R30.0 Dysuria (principal); N39.0 Urinary tract infection, site not specified
CPT/HCPCS: 81000; 87086

== ENCOUNTER 2025-04-08 10:20 | Outpatient (CLI) | payer OTHER, MEDICAID, SELFPAY ==
[2024-06-15 09:25] VITALS: BP 122/80; BMI 30.1
--- NOTE | 2025-04-08 11:16 | XRR_ITS ---
PROCEDURE INFORMATION: Exam: XR Cervical Spine Exam date and time: 04/08/2025 11:17 AM Age: 40 years old Clinical indication: Neck pain post fall x 3 days ago; Additional info: Cervical pain after fall TECHNIQUE: Imaging protocol: Radiologic exam of the cervical spine. Views: 2 or 3 views. COMPARISON: CT cervical spin wo con* [id number] 04/02/2024 9:23 PM FINDINGS: Tubes, catheters and devices: Interbody device seen at C4-C5 level. ACDF at C5-C6 level. Bones/joints: Straightening of cervical lordosis. No cervical fracture or facet subluxation. Soft tissues: Unremarkable. XR/XR cervical spine 3V* [id number] IMPRESSION: 1. No fracture. Prior surgical changes as described. 2. Straightening of cervical lordosis.
== END 2025-04-08 10:21 | disposition home or self-care (01) ==
PROVIDERS: PCP Family Medicine; Visit Provider Emergency Medicine
DX: M54.2 Cervicalgia (principal); S49.92XA Unspecified injury of left shoulder and upper arm, initial encounter; Z98.890 Other specified postprocedural states; R93.7 Abnormal findings on diagnostic imaging of other parts of musculoskeletal system; X58.XXXA Exposure to other specified factors, initial encounter
CPT/HCPCS: 72040; 73030

== ENCOUNTER → 2025-04-17 08:31 | Outpatient (BNVA) | payer OTHER, MEDICAID, SELFPAY ==
[2024-06-15 09:25] VITALS: BP 122/80; BMI 30.1
== END ==
PROVIDERS: PCP Family Medicine; Visit Provider Emergency Medicine
DX: N39.0 Urinary tract infection, site not specified (principal)
CPT/HCPCS: 87077; 87086; 87184

== ENCOUNTER → 2025-04-26 08:20 | Outpatient (BNVA) | payer OTHER, MEDICAID, SELFPAY ==
[2024-06-15 09:25] VITALS: BP 122/80; BMI 30.1
== END ==
PROVIDERS: PCP Family Medicine; Visit Provider Family Medicine
DX: M19.90 Unspecified osteoarthritis, unspecified site (principal)
CPT/HCPCS: 85025; 85651; 86140; 86160; 86162; 86235; 86255; 86376; 86431

== ENCOUNTER → 2025-10-31 08:03 | Outpatient (BNVA) | payer OTHER, MEDICAID, SELFPAY ==
[2024-06-15 09:25] VITALS: BP 122/80; BMI 30.1
== END ==
PROVIDERS: PCP Family Medicine; Visit Provider Family Medicine Adult Medicine
DX: R30.0 Dysuria (principal)
CPT/HCPCS: 81000